=== PATIENT | female | born 1950 | race African-American/Black ===

== ENCOUNTER 2016-11-23 01:36 | Inpatient (IN) | payer OTHER ==
[2016-11-23 01:54] VITALS: BMI 40.6
[2016-11-23] MEDS ORDERED: dilTIAZem HCL 60 MG TABLET (FP) PO ONE (02:31)
[2016-11-23] MEDS ORDERED: dilTIAZem HCL 60 MG TABLET (FP) ONE (02:33)
[2016-11-23 03:08] LABS: BASOPHIL 0.4 % (0-2.0); EOSINOPHIL 0.1 % (0-4.5); MCH 28.2 pg (25.7-33.7); MCHC 32.8 g/dl (32.0-36.0); MEAN CELL VOLUME 85.9 fl (80-96); MEAN PLT VOLUME 8.9 fl (7.5-11.1); NEUTROPHILS 93.8 % (42.8-82.8); PLATELET COUNT 205 K/MM3 (134-434); RDW 16.7 % (11.6-15.6); WHITE BLOOD COUNT 9.8 K/mm3 (4.0-10.0)
[2016-11-23] MEDS ORDERED: dilTIAZem HCL 50 MG/10 ML - 10 ML VIAL IVPUSH ONE (03:14)
--- NOTE | 2016-11-23 03:14 | PDOC ---
Attending Attestation - Resident Resident Name: Mayra Arthur <Kenny Silver I - Last Filed: 11/23/16 03:13> - HPI HPI: 11/23/16 03:23 The patient is a 66 year old female who comes from home for evaluation of shortness of breath. The patient is normally on Cardizem and did not take her medication for the last couple of days. On arrival, she presents with rapid atrial fibrillation at a rate of 130-140. Her initial O2 saturation with room air was in the high 80%, on 2 L of O2 is 97%. She denies chest pain or any other complaints. - Physicial Exam PE: 11/23/16 03:23 General: (+) Mild distress. Respiratory: (+) Tachypneic. No rales or rhonchi. Good airway entry bilaterally. Cardiovascular: (+) Tachycardic. (+) Irregularly irregular rhythm. 11/23/16 03:23 - Medical Decision Making 11/23/16 03:23 Patient had rapid AFIB managed with initial PO Cardizem (60 mg). Heart rate remained in the high 130's. Patient was then given 10 mg of IV Cardizem and started at a drip of 5 mg/kg/hour. <Luis Felipe Lawson - Last Filed: 11/23/16 04:21> Heart Score/ECG Review #1 11/23/16 04:20 Vent rate 142 bpm [place] interval * ms QRS duration 102 ms QT/QTc 316/486 ms P-R-T axes * -36 97 Atrial fibrillation with rapid ventricular response. Left axis deviation Minimal voltage criteria for LVH, may be normal variant Abnormal QRS-T angle, consider primary T wave abnormality. Abnormal ECG. <Luis Felipe Lawson - Last Filed: 11/23/16 04:21>
[2016-11-23] MEDS ORDERED: dilTIAZem HCL 125 MG/25 ML - 25 ML VIAL ONE (03:16)
[2016-11-23] MEDS ORDERED: FUROSEMIDE 40 MG/4 ML INJECTABLE VIAL IVPUSH ONE (03:22)
[2016-11-23 03:24] LABS: INR 1.32 (0.82-1.09); PROTHROMBIN TIME (PATIENT) 14.6 SEC (9.98-11.88)
[2016-11-23] MEDS: DILTIAZEM INJECTION 125 MG in DEXTROSE 5%-WATER - 100 ML IVPB SCH ×2 (03:37→21:40)
[2016-11-23] MEDS ORDERED: FUROSEMIDE 40 MG/4 ML INJECTABLE VIAL ONE (03:57)
[2016-11-23 04:17] LABS: ALBUMIN 3.9 g/dl (3.4-5.0); ANION GAP 16 (8-16); CALCIUM 9.7 mg/dL (8.5-10.1); CO2 13 mmol/L (21-32); CREATININE 3.1 mg/dL (0.55-1.02); GLUCOSE,RANDOM 254 mg/dL (74-106); SGOT/AST 53 U/L (15-37); SGPT/ALT 67 U/L (12-78)
[2016-11-23 04:18] LABS: ALK PHOS 145 U/L (45-117); BILIRUBIN,TOTAL 0.9 mg/dL (0.2-1.0); TOT PROT 7.8 g/dl (6.4-8.2)
--- NOTE | 2016-11-23 05:34 | PDOC ---
History of Present Illness - General Chief Complaint: Shortness of Breath Stated Complaint: DIFFICULTY BREATHING Time Seen by Provider: 11/23/16 01:40 History Source: Patient Exam Limitations: No Limitations - History of Present Illness Initial Comments: 66yo F with PMH of afib (on Eliquis), dm, ckd, presents c/o sob. Pt reports that she had trouble breathing all day long. At 10pm she went to sleep but was woken up because of trouble breathing prompting her to come to the ER. She presents in rapid afib with O2 sats in the high 80%'s. Pt normally takes Cardizem, but she did not take her Cardizem yesterday. PCP: Dr. Rankin 11/23/16 05:29 Associated Symptoms: reports: shortness of breath. denies: chest pain, cough, diaphoresis, nausea/vomiting, syncope, weakness Past History - Past Medical History Allergies/Adverse Reactions: Allergies Allergy/AdvReac Type Severity Reaction Status Date / Time No Known Drug Allergies Allergy Verified 11/23/16 01:47 Home Medications: Ambulatory Orders Simvastatin [Zocor -] 40 mg PO DAILY 04/08/12 Aspirin [ASA -] 81 mg PO DAILY #1 02/23/13 Ascorbate Calcium [Vitamin C] 500 mg PO DAILY 03/07/14 Calcium 500 mg PO DAILY 03/07/14 Carvedilol [Coreg] 25 mg PO BID 03/07/14 Cyanocobalamin [Vitamin B12 -] 250 mcg PO DAILY 03/07/14 Ergocalciferol (Vitamin D2) [Vitamin D2] 50,000 unit PO WEEKLY 03/07/14 Glimepiride [Amaryl -] 1 mg PO DAILY@0700 03/07/14 Valacyclovir HCl [Valtrex -] 500 mg PO DAILY 03/07/14 Apixaban [Eliquis] 2.5 mg PO DAILY 07/06/15 Omeprazole [Prilosec] 40 mg PO DAILY 07/06/15 Cyclopentolate 1% Eye Drops [Cyclogyl 1% Eye Drops -] 1 drop OD TID 05/17/16 Cyclopentolate 1% Eye Drops [Cyclogyl 1% Eye Drops -] 1 drop OS ONCE 05/17/16 Diltiazem [Cardizem -] 30 mg PO BID #60 tablet 05/19/16 Furosemide [Lasix] 40 mg PO BID #60 tablet 05/19/16 Anemia: No Asthma: Yes Cancer: No Cardiac Disorders: Yes (CAD, Left side stent, porcine valve, afib) CVA: Yes (NO RESIDUAL) COPD: No CHF: No Dementia: No Diabetes: Yes GI Disorders: No Disorders: No HTN: Yes Hypercholesterolemia: Yes Liver Disease: No Seizures: No Thyroid Disease: No Other medical history: ckd, arthritis, blind - Surgical History Abdominal Surgery: No Appendectomy: No Cardiac Surgery: Yes (valve replacementx2 most rcent with pig valve) Cholecystectomy: No Lung Surgery: No Neurologic Surgery: No Orthopedic Surgery: No - Psycho/Social/Smoking Cessation Hx Anxiety: No Suicidal Ideation: No Smoking Status: No Smoking History: Former smoker Have you smoked in the past 12 months: No Number of Cigarettes Smoked Daily: 0 If you are a former smoker, when did you quit?: 12 yrs ago Information on smoking cessation initiated: No 'Breaking Loose' booklet given: 04/09/12 Hx Alcohol Use: No Drug/Substance Use Hx: No Substance Use Type: None Hx Substance Use Treatment: No Review of Systems - Review of Systems Able to Perform ROS?: Yes Is the patient limited [place] proficient: No Constitutional: No: Chills, Diaphoresis, Fever HEENTM: No: Recent change in vision, Ear Pain, Nose Congestion, Throat Swelling Respiratory: Yes: Orthopnea, Shortness of Breath. No: Cough, Stridor, Wheezing Cardiac (ROS): Yes: Irregular Heart Rate. No: Chest Pain, Edema, Lightheadedness, Syncope, Chest Tightness ABD/GI: No: Abdominal Distended, Nausea, Vomiting, Abdominal cramping : No: Burning, Dysuria Musculoskeletal: Yes: Joint Pain (knees - gout and arthritis) Integumentary: No: Bruising, Erythema, Rash Neurological: Yes: Numbness. No: Weakness ( ), Dizziness *Physical Exam - Vital Signs Last Vital Signs Temp Pulse Resp BP Pulse Ox 98.4 F 77 22 157/100 100 11/23/16 01:47 11/23/16 01:47 11/23/16 01:47 11/23/16 01:47 11/23/16 01:47 - Physical Exam General Appearance: Yes: Appropriately Dressed, Moderate Distress, Obese, Other (blind) HEENT: positive: Normal Voice, Other (moist mucous membranes). negative: Pale Conjunctivae, Scleral Icterus (R), Scleral Icterus (L), Nasal Congestion, Rhinorrhea Neck: positive: Trachea midline, Supple Respiratory/Chest: positive: Lungs Clear, Normal Breath Sounds. negative: Respiratory Distress, Accessory Muscle Use Cardiovascular: positive: Irregularly Irregular. negative: Murmur Gastrointestinal/Abdominal: positive: Soft. negative: Distended, Guarding, Rebound, Tenderness Musculoskeletal: negative: Decreased Range of Motion Extremity: positive: Normal Inspection. negative: Swelling, Calf Tenderness, Erythema Integumentary: positive: Normal Color, Dry, Warm Neurologic: positive: Fully Oriented, Alert, Normal Mood/Affect, Normal Response , Motor Strength 07/11 ED Treatment Course - LABORATORY CBC & Chemistry Diagram: 11/23/16 03:00 11/23/16 03:26 - ADDITIONAL ORDERS Additional order review: Laboratory Results 11/23/16 11/23/16 11/23/16 03:26 03:00 03:00 PT with INR INR Sodium 138 Potassium 5.8 H D Chloride 109 H Carbon Dioxide 13 L D Anion Gap 16 BUN 79 H Creatinine 3.1 H Creat Clearance w eGFR 14.99 Random Glucose 254 H D Lactic Acid 1.1 Calcium 9.7 Magnesium Cancelled Total Bilirubin 0.9 D AST 53 H D ALT 67 D Alkaline Phosphatase 145 H D Creatine Kinase Cancelled Troponin I Cancelled Total Protein 7.8 D Albumin 3.9 D 11/23/16 11/23/16 03:00 03:00 PT with INR 14.60 H INR 1.32 H Sodium Cancelled Potassium Cancelled Chloride Cancelled Carbon Dioxide Cancelled Anion Gap Cancelled BUN Cancelled Creatinine Cancelled Creat Clearance w eGFR Cancelled Random Glucose Cancelled Lactic Acid Calcium Cancelled Magnesium Total Bilirubin Cancelled AST Cancelled ALT Cancelled Alkaline Phosphatase Cancelled Creatine Kinase Troponin I Total Protein Cancelled Albumin Cancelled 11/23/16 03:00 RBC 4.23 MCV 85.9 MCHC 32.8 RDW 16.7 H MPV 8.9 Neutrophils % 93.8 H Lymphocytes % 3.7 L D Monocytes % 2.0 L Eosinophils % 0.1 D Basophils % 0.4 - RADIOLOGY Radiology Studies Ordered: Category Date Time Status CXRPORT [CHEST X-RAY PORTABLE*] [RAD] Stat Radiology 11/23/16 02:35 Taken - Medications Given in the ED: ED Medications Discontinued Medications Generic Name Dose Route Start Last Admin Trade Name Meagan PRN Reason Stop Dose Admin Diltiazem HCl 60 mg 11/23/16 02:31 11/23/16 02:46 Cardizem - PO 11/23/16 02:32 60 mg ONCE ONE Administration Diltiazem HCl 10 mg 11/23/16 03:14 11/23/16 03:21 Cardizem Injection - IVPUSH 11/23/16 03:15 10 mg ONCE ONE Administration Furosemide 80 mg 11/23/16 03:22 11/23/16 04:05 Lasix Injection - IVPUSH 11/23/16 03:23 80 mg ONCE ONE Administration Medical Decision Making - Medical Decision Making 66yo F with PMH of afib (on Eliquis), dm, ckd, presents c/o sob. Pt did not take her Cardizem yesterday and presents in rapid afib. EKG -> afib with rapid ventricular response Cardizem 60mg PO given (twice pt's normal dose). HR remained 130-140 -> Cardizem 10mg IVpush given and Cardizem drip initiated O2 sats in high 80%'s on arrival -> 97% on 2 L O2 via nasal cannula CXR -> official read pending, looks congested -> Lasix 80mg IVpush CBC with diff -> neutrophilia noted. troponin lab hemolyzed -> reordered CMP -> hyperglycemia (254), elevated BUN/Cr (79/3.1 at baseline ckd), hyperkalemia (5.8) -> Calcium gluconate and Regular Insulin 5U IVpush given INR -> 1.32 (on eliquis) lactic acid -> wnl 11/23/16 05:50 11/23/16 07:20 Case signed out to ER Resident Dr. Chapa. Pt should be admitted to ICU. *DC/Admit/Observation/Transfer Diagnosis at time of Disposition: CKD (chronic kidney disease) stage 4, GFR 15-29 ml/min, Hyperkalemia, Non- insulin dependent type 2 diabetes mellitus, Afib - Discharge Dispostion Condition at time of disposition: Guarded
[2016-11-23] MEDS ORDERED: INSULIN REGULAR HUMAN 100 UNITS/ML *VIAL IVPUSH ONE (05:42)
[2016-11-23] MEDS ORDERED: CALCIUM GLUCONATE 10% - 1,000 MG/10 ML VIAL IVPUSH ONE (05:42)
[2016-11-23] MEDS ORDERED: CALCIUM GLUCONATE 10% - 1,000 MG/10 ML VIAL ONE (06:34)
[2016-11-23 08:18] LABS: URINE APPEARANCE SLCLOUDY; URINE BILIRUBIN NEGATIVE (NEGATIVE); URINE BLOOD 1+ (NEGATIVE); URINE COLOR STRAW; URINE GLUCOSE (UA) 1+ (NEGATIVE); URINE KETONE NEGATIVE (NEGATIVE); URINE LEUK ESTERASE NEGATIVE (NEGATIVE); URINE NITRITE NEGATIVE (NEGATIVE); URINE PROTEIN 2+ (NEGATIVE); URINE UROBILINOGEN NEGATIVE mg/dL (0.2-1.0)
[2016-11-23 08:21] LABS: CALCIUM OXALATE CRYSTALS RARE /hpf (NONE SEEN); URINE MUCUS RARE; URINE RBC 6 /hpf (0-3); URINE WBC 1 /hpf (3-5); YEAST RARE
[2016-11-23 08:22] LABS: MAGNESIUM 1.4 mg/dL (1.8-2.4)
[2016-11-23 08:23] LABS: CPK 182 IU/L (26-192); TROPONIN I 0.33 ng/ml (0.00-0.05)
--- NOTE | 2016-11-23 08:47 | PDOC ---
*Physical Exam - Vital Signs Last Vital Signs Temp Pulse Resp BP Pulse Ox 98.4 F 125 H 24 159/92 100 11/23/16 01:47 11/23/16 07:45 11/23/16 07:45 11/23/16 07:45 11/23/16 07:45 - Physical Exam Comments: 11/23/16 08:45 GENERAL: Awake, alert, and fully oriented, in no acute distress ENT: Auricles normal inspection, hearing grossly normal, nares patent, oropharynx clear without exudates. Moist mucosa LUNGS: No distress, speaks full sentences, clear to auscultation bilaterally HEART: Regular rhythm, tachycardic, normal S1 and S2, no murmurs, rubs or gallops, peripheral pulses normal and equal bilaterally. ABDOMEN: Soft, nontender, normoactive bowel sounds. No guarding, no rebound. No masses EXTREMITIES: Normal inspection, Normal range of motion, mild pitting edema to knee. No clubbing or cyanosis. NEUROLOGICAL: Cranial nerves II through XII grossly intact. Normal speech, no focal sensorimotor deficits SKIN: Warm, Dry, normal turgor, no rashes or lesions noted. ED Treatment Course - LABORATORY CBC & Chemistry Diagram: 11/23/16 03:00 11/23/16 07:35 - ADDITIONAL ORDERS Additional order review: Laboratory Results 11/23/16 11/23/16 11/23/16 07:35 06:10 03:26 PT with INR INR Sodium 138 Potassium 5.8 H D Chloride 109 H Carbon Dioxide 13 L D Anion Gap 16 BUN 79 H Creatinine 3.1 H Creat Clearance w eGFR 14.99 Random Glucose 254 H D Lactic Acid Calcium 9.7 Magnesium 1.4 L D Total Bilirubin 0.9 D AST 53 H D ALT 67 D Alkaline Phosphatase 145 H D Creatine Kinase 182 Troponin I 0.33 H Total Protein 7.8 D Albumin 3.9 D Urine Color Straw Urine Appearance Slcloudy Urine pH 5.0 Urine Protein 2+ H Urine Glucose (UA) 1+ H Urine Ketones Negative Urine Blood 1+ H Urine Nitrite Negative Urine Bilirubin Negative Urine Urobilinogen Negative Urine RBC 6 Urine WBC 1 Ur Epithelial Cells Few Calcium Oxalate Crystal Rare Urine Mucus Rare Urine Yeast Rare 11/23/16 11/23/16 11/23/16 03:00 03:00 03:00 PT with INR 14.60 H INR 1.32 H Sodium Potassium Chloride Carbon Dioxide Anion Gap BUN Creatinine Creat Clearance w eGFR Random Glucose Lactic Acid 1.1 Calcium Magnesium Cancelled Total Bilirubin AST ALT Alkaline Phosphatase Creatine Kinase Cancelled Troponin I Cancelled Total Protein Albumin Urine Color Urine Appearance Urine pH Urine Protein Urine Glucose (UA) Urine Ketones Urine Blood Urine Nitrite Urine Bilirubin Urine Urobilinogen Urine RBC Urine WBC Ur Epithelial Cells Calcium Oxalate Crystal Urine Mucus Urine Yeast 11/23/16 03:00 PT with INR INR Sodium Cancelled Potassium Cancelled Chloride Cancelled Carbon Dioxide Cancelled Anion Gap Cancelled BUN Cancelled Creatinine Cancelled Creat Clearance w eGFR Cancelled Random Glucose Cancelled Lactic Acid Calcium Cancelled Magnesium Total Bilirubin Cancelled AST Cancelled ALT Cancelled Alkaline Phosphatase Cancelled Creatine Kinase Troponin I Total Protein Cancelled Albumin Cancelled Urine Color Urine Appearance Urine pH Urine Protein Urine Glucose (UA) Urine Ketones Urine Blood Urine Nitrite Urine Bilirubin Urine Urobilinogen Urine RBC Urine WBC Ur Epithelial Cells Calcium Oxalate Crystal Urine Mucus Urine Yeast 11/23/16 03:00 RBC 4.23 MCV 85.9 MCHC 32.8 RDW 16.7 H MPV 8.9 Neutrophils % 93.8 H Lymphocytes % 3.7 L D Monocytes % 2.0 L Eosinophils % 0.1 D Basophils % 0.4 - Medications Given in the ED: ED Medications Discontinued Medications Generic Name Dose Route Start Last Admin Trade Name Meagan PRN Reason Stop Dose Admin Calcium Gluconate 1,000 mg 11/23/16 05:42 11/23/16 06:49 Calcium Gluconate 10% - IVPUSH 11/23/16 05:43 1,000 mg ONCE ONE Administration Diltiazem HCl 60 mg 11/23/16 02:31 11/23/16 02:46 Cardizem - PO 11/23/16 02:32 60 mg ONCE ONE Administration Diltiazem HCl 10 mg 11/23/16 03:14 11/23/16 03:21 Cardizem Injection - IVPUSH 11/23/16 03:15 10 mg ONCE ONE Administration Furosemide 80 mg 11/23/16 03:22 11/23/16 04:05 Lasix Injection - IVPUSH 11/23/16 03:23 80 mg ONCE ONE Administration Insulin Human Regular 5 units 11/23/16 05:42 11/23/16 06:49 Novolin R Vial *For Ivpush Or Iv Drip Only* IVPUSH 11/23/16 05:43 5 units ONCE ONE Administration Medical Decision Making - Medical Decision Making 11/23/16 08:47 Sign out taken from Dr Arthur, will follow trop, monitor and admit to icu. Trop at 0.33, at baseline. Cr at 3.1, at baseline. SBP at 160, rate controlled to 100s on diltiazem drip. Repeat BMP ordered for hyperkalemia. 11/23/16 09:24 Second call out to PCP. 11/23/16 09:25 Laboratory Tests 11/23/16 07:35 Potassium 4.8 B-Natriuretic Peptide 56722.78 H Potassium in normal range, BNP 18k 11/23/16 09:[address] Amanda, has no cardiology preference. Will consult cards. Accepted to ICU by Dr Ordonez. *DC/Admit/Observation/Transfer Diagnosis at time of Disposition: CKD (chronic kidney disease) stage 4, GFR 15-29 ml/min, Hyperkalemia, Non- insulin dependent type 2 diabetes mellitus, Afib - Discharge Dispostion Condition at time of disposition: Guarded
[2016-11-23 08:49] LABS: ALBUMIN 3.9 g/dl (3.4-5.0); ANION GAP 11 (8-16); BILIRUBIN,TOTAL 0.7 mg/dL (0.2-1.0); CALCIUM 10.3 mg/dL (8.5-10.1); CO2 18 mmol/L (21-32); CREATININE 3.1 mg/dL (0.55-1.02); GLUCOSE,RANDOM 171 mg/dL (74-106); SGPT/ALT 72 U/L (12-78); TOT PROT 8.2 g/dl (6.4-8.2)
[2016-11-23 08:51] LABS: ALK PHOS 145 U/L (45-117)
[2016-11-23 08:55] LABS: SGOT/AST 49 U/L (15-37)
--- NOTE | 2016-11-23 09:50 | CON.CARD ---
Consult Consult Specialty:: Cardiology Reason for Consultation:: af with rvr - History of Present Illness History of Present Illness: 66yo F with PMH of afib (on Eliquis), dm, ckd, presents c/o sob. Pt reports that she had trouble breathing all day long. At 10pm she went to sleep but was woken up because of trouble breathing prompting her to come to the ER. She presents in rapid afib with O2 sats in the high 80%'s. Pt normally takes Cardizem, but she did not take her Cardizem yesterday. Surgery; metallic MVR 2002, bovine MVR 2006, HD fistula, gall bladder PMH DM, HTN, lipids, GERD, asthma - History Source History Provided By: Patient, Medical Record - Past Medical History Cardio/Vascular: Yes: AFIB (paroxysmal), CAD (s/p stent), HTN, Mitral Insufficiency Pulmonary: Yes: Asthma Gastrointestinal: Yes: GERD Hepatobiliary: Yes: Cholelithiasis Renal/: Yes: Renal Inusuff (CKD 4) Endocrine: Yes: Diabetes Mellitus (with diabetic retinopathy-blind) - Past Surgical History Past Surgical History: Yes: AV Fistula/Graft (left-non functioning), Hysterectomy (LETI/BSO 1969), Valve Replacement (porcine 2006) - Alcohol/Substance Use Hx Alcohol Use: No - Smoking History Smoking history: Former smoker Have you smoked in the past 12 months: No Aproximately how many cigarettes per day: 0 If you are a former smoker, when did you quit?: 12 yrs ago - Social History 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[facility]) History of Recent Travel: No Home Medications - Allergies Allergies/Adverse Reactions: Allergies Allergy/AdvReac Type Severity Reaction Status Date / Time No Known Drug Allergies Allergy Verified 11/23/16 01:47 - Home Medications Home Medications: Ambulatory Orders Aspirin [ASA -] 81 mg PO DAILY #1 02/23/13 Ascorbate Calcium [Vitamin C] 500 mg PO DAILY 03/07/14 Calcium 500 mg PO DAILY 03/07/14 Carvedilol [Coreg] 25 mg PO BID 03/07/14 Cyanocobalamin [Vitamin B12 -] 250 mcg PO DAILY 03/07/14 Ergocalciferol (Vitamin D2) [Vitamin D2] 50,000 unit PO WEEKLY 03/07/14 Glimepiride [Amaryl -] 1 mg PO DAILY@0700 03/07/14 Apixaban [Eliquis] 2.5 mg PO DAILY 07/06/15 Omeprazole [Prilosec] 40 mg PO DAILY 07/06/15 Cyclopentolate 1% Eye Drops [Cyclogyl 1% Eye Drops -] 1 drop OD TID 05/17/16 Ferrous Sulfate 325 mg PO DAILY 11/23/16 Hydrochlorothiazide 25 mg PO DAILY 11/23/16 Family Disease History - Family Disease History Family Disease History: Diabetes: Father, Heart Disease: Father, Other: Mother ( Alzheimers) Review of Systems - Review of Systems Constitutional: reports: No Symptoms Eyes: reports: No Symptoms HENT: reports: No Symptoms Neck: reports: No Symptoms Cardiovascular: reports: Palpitations, Shortness of Breath Gastrointestinal: reports: No Symptoms Genitourinary: reports: No Symptoms Breasts: reports: No Symptoms Reported Musculoskeletal: reports: No Symptoms Integumentary: reports: No Symptoms Neurological: reports: No Symptoms Endocrine: reports: No Symptoms Hematology/Lymphatic: reports: No Symptoms Psychiatric: reports: No Symptoms Vital Signs: Vital Signs Temperature 98.4 F 11/23/16 01:47 Pulse Rate 125 H 11/23/16 07:45 Respiratory Rate 24 11/23/16 07:45 Blood Pressure 159/92 11/23/16 07:45 O2 Sat by Pulse Oximetry (%) 100 11/23/16 07:45 Constitutional: Yes: Well Nourished, No Distress, Calm Eyes: Yes: WNL, Conjunctiva Clear, EOM Intact HENT: Yes: WNL, Atraumatic, Normocephalic Neck: Yes: WNL, Supple, Trachea Midline Respiratory: Yes: WNL, Regular, CTA Bilaterally Gastrointestinal: Yes: WNL, Normal Bowel Sounds Renal/: Yes: WNL Cardiovascular: Yes: WNL, Pulse Irregular Heart Sounds: Yes: S1, S2 Murmur: Yes: Systolic Murmur, Grade 2 Musculoskeletal: Yes: WNL Extremities: Yes: WNL Integumentary: Yes: WNL Neurological: Yes: WNL, Alert, Oriented ...Motor Strength: WNL Psychiatric: Yes: WNL, Alert, Oriented - Other Data Labs, Other Data: INR, PTT INR 1.32 (0.82-1.09) H 11/23/16 03:00 Laboratory Tests 11/23/16 11/23/16 11/23/16 03:00 03:00 03:00 WBC 9.8 RBC 4.23 Hgb 11.9 Hct 36.4 MCV 85.9 MCH 28.2 MCHC 32.8 RDW 16.7 H Plt Count 205 MPV 8.9 Neutrophils % 93.8 H Lymphocytes % 3.7 L D Monocytes % 2.0 L Eosinophils % 0.1 D Basophils % 0.4 PT with INR 14.60 H INR 1.32 H Sodium Cancelled Potassium Cancelled Chloride Cancelled Carbon Dioxide Cancelled Anion Gap Cancelled BUN Cancelled Creatinine Cancelled Creat Clearance w eGFR Cancelled Random Glucose Cancelled Lactic Acid Calcium Cancelled Magnesium Total Bilirubin Cancelled AST Cancelled ALT Cancelled Alkaline Phosphatase Cancelled Creatine Kinase Creatine Kinase Index CK-MB (CK-2) Troponin I B-Natriuretic Peptide Total Protein Cancelled Albumin Cancelled Urine Color Urine Appearance Urine pH Urine Protein Urine Glucose (UA) Urine Ketones Urine Blood Urine Nitrite Urine Bilirubin Urine Urobilinogen Urine RBC Urine WBC Ur Epithelial Cells Calcium Oxalate Crystal Urine Mucus Urine Yeast 11/23/16 11/23/16 11/23/16 03:00 03:00 03:26 WBC RBC Hgb Hct MCV MCH MCHC RDW Plt Count MPV Neutrophils % Lymphocytes % Monocytes % Eosinophils % Basophils % PT with INR INR Sodium 138 Potassium 5.8 H D Chloride 109 H Carbon Dioxide 13 L D Anion Gap 16 BUN 79 H Creatinine 3.1 H Creat Clearance w eGFR 14.99 Random Glucose 254 H D Lactic Acid 1.1 Calcium 9.7 Magnesium Cancelled Total Bilirubin 0.9 D AST 53 H D ALT 67 D Alkaline Phosphatase 145 H D Creatine Kinase Cancelled Creatine Kinase Index CK-MB (CK-2) Troponin I Cancelled B-Natriuretic Peptide Total Protein 7.8 D Albumin 3.9 D Urine Color Urine Appearance Urine pH Urine Protein Urine Glucose (UA) Urine Ketones Urine Blood Urine Nitrite Urine Bilirubin Urine Urobilinogen Urine RBC Urine WBC Ur Epithelial Cells Calcium Oxalate Crystal Urine Mucus Urine Yeast 11/23/16 11/23/16 06:10 07:35 WBC RBC Hgb Hct MCV MCH MCHC RDW Plt Count MPV Neutrophils % Lymphocytes % Monocytes % Eosinophils % Basophils % PT with INR INR Sodium 138 Potassium 4.8 Chloride 109 H Carbon Dioxide 18 L D Anion Gap 11 BUN 74 H Creatinine 3.1 H Creat Clearance w eGFR 14.99 Random Glucose 171 H D Lactic Acid Calcium 10.3 H Magnesium 1.4 L D Total Bilirubin 0.7 D AST 49 H ALT 72 Alkaline Phosphatase 145 H Creatine Kinase 182 Creatine Kinase Index 1.4 CK-MB (CK-2) 2.560 Troponin I 0.33 H B-Natriuretic Peptide 81446.78 H Total Protein 8.2 Albumin 3.9 Urine Color Straw Urine Appearance Slcloudy Urine pH 5.0 Urine Protein 2+ H Urine Glucose (UA) 1+ H Urine Ketones Negative Urine Blood 1+ H Urine Nitrite Negative Urine Bilirubin Negative Urine Urobilinogen Negative Urine RBC 6 Urine WBC 1 Ur Epithelial Cells Few Calcium Oxalate Crystal Rare Urine Mucus Rare Urine Yeast Rare Imaging - Results Chest X-ray: Image Reviewed (s/p [facility] CHF) EKG: Pending Problem List - Problems (1) Afib Code(s): I48.91 - UNSPECIFIED ATRIAL FIBRILLATION (2) CKD (chronic kidney disease) stage 4, GFR 15-29 ml/min Code(s): N18.4 - CHRONIC KIDNEY DISEASE, STAGE 4 (SEVERE) (3) Hyperkalemia Code(s): E87.5 - HYPERKALEMIA (4) Non-insulin dependent type 2 diabetes mellitus Code(s): E11.9 - TYPE 2 DIABETES MELLITUS WITHOUT COMPLICATIONS (5) Acute CHF (congestive heart failure) Code(s): I50.9 - HEART FAILURE, UNSPECIFIED Qualifiers: Congestive heart failure type: unspecified congestive heart failure type Qualified Code(s): I50.9 - Heart failure, unspecified (6) CAD (coronary artery disease) Code(s): I25.10 - ATHSCL HEART DISEASE OF [place] CORONARY ARTERY W/O ANG PCTRS Qualifiers: Coronary Disease-Associated Artery/Lesion type: [place] artery Associated angina: without angina (7) CKD (chronic kidney disease) Code(s): N18.9 - CHRONIC KIDNEY DISEASE, UNSPECIFIED Qualifiers: Chronic kidney disease stage: stage 4 (severe) Qualified Code(s): N18.4 - Chronic kidney disease, stage 4 (severe) (8) Shortness of breath Code(s): R06.02 - SHORTNESS OF BREATH Assessment/Plan af with RVR after stopping cardizem htn chf dm asthma s/p MVR - reop bovine ischemic cmp systolic chf plan Cardizem ip for now change to po as tolerated cont coreg cont ac agree with lasix echo will f/u
[2016-11-23] MEDS ORDERED: dilTIAZem HCL 125 MG/25 ML - 5 ML VIAL ONE ×2 (13:33→21:25)
--- NOTE | 2016-11-23 13:57 | CON.PULM ---
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 Apparently has an appointment for a sleep study in the city this week that was ordered by one of her doctors. Apparently has not been taking her Cardizem. Presents to the ER with SOB and palpitations. Noted ot be in Rapid AFib. CXR : consistent with CHF pattern. No fever or chills. No hemoptysis. No travel history or sick contacts. - History Source History Provided By: Patient Limitations to Obtaining History: No Limitations - Past Medical History Cardio/Vascular: Yes: AFIB (paroxysmal), CAD (s/p stent), HTN, Mitral Insufficiency Pulmonary: Yes: Asthma Gastrointestinal: Yes: GERD Hepatobiliary: Yes: Cholelithiasis Renal/: Yes: Renal Inusuff (CKD 4) ...: No Endocrine: Yes: Diabetes Mellitus (with diabetic retinopathy-blind) - Past Surgical History Past Surgical History: Yes: AV Fistula/Graft (left-non functioning), Hysterectomy (LETI/BSO 1969), Valve Replacement (porcine 2006) - Alcohol/Substance Use Hx Alcohol Use: No - Smoking History Smoking history: Former smoker Have you smoked in the past 12 months: No Aproximately how many cigarettes per day: 0 If you are a former smoker, when did you quit?: 12 yrs ago - 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 History 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[employer]) History of Recent Travel: No Home Medications - Allergies Allergies/Adverse Reactions: Allergies Allergy/AdvReac Type Severity Reaction Status Date / Time No Known Drug Allergies Allergy Verified 11/23/16 01:47 - Home Medications Home Medications: Ambulatory Orders Aspirin [ASA -] 81 mg PO DAILY #1 02/23/13 Ascorbate Calcium [Vitamin C] 500 mg PO DAILY 03/07/14 Calcium 500 mg PO DAILY 03/07/14 Carvedilol [Coreg] 25 mg PO BID 03/07/14 Cyanocobalamin [Vitamin B12 -] 250 mcg PO DAILY 03/07/14 Ergocalciferol (Vitamin D2) [Vitamin D2] 50,000 unit PO WEEKLY 03/07/14 Glimepiride [Amaryl -] 1 mg PO DAILY@0700 03/07/14 Apixaban [Eliquis] 2.5 mg PO DAILY 07/06/15 Omeprazole [Prilosec] 40 mg PO DAILY 07/06/15 Cyclopentolate 1% Eye Drops [Cyclogyl 1% Eye Drops -] 1 drop OD TID 05/17/16 Ferrous Sulfate 325 mg PO DAILY 11/23/16 Hydrochlorothiazide 25 mg PO DAILY 11/23/16 Family Disease History - Family Disease History Family Disease History: Diabetes: Father, Heart Disease: Father, Other: Mother ( Alzheimers) Review of Systems - Review of Systems Constitutional: denies: Chills, Malaise, Night Sweats, Unintentional Wgt. Loss Eyes: reports: No Symptoms HENT: reports: No Symptoms Neck: reports: No Symptoms Cardiovascular: reports: Edema, Palpitations, Shortness of Breath. denies: Chest Pain Respiratory: reports: Cough, Orthopnea, Snoring, SOB, SOB on Exertion. denies: Hemoptysis, Wheezing Gastrointestinal: reports: No Symptoms Genitourinary: reports: No Symptoms Breasts: reports: No Symptoms Reported Musculoskeletal: reports: No Symptoms Integumentary: reports: No Symptoms Neurological: reports: No Symptoms Endocrine: reports: No Symptoms Hematology/Lymphatic: reports: No Symptoms Psychiatric: reports: No Symptoms Physical Exam Vital Sings: Vital Signs Temperature 98.2 F 11/23/16 09:29 Pulse Rate 107 H 11/23/16 13:00 Respiratory Rate 25 H 11/23/16 13:00 Blood Pressure 143/57 11/23/16 13:00 O2 Sat by Pulse Oximetry (%) 100 11/23/16 10:30 Constitutional: Yes: No Distress Eyes: Yes: Conjunctiva Clear, EOM Intact HENT: Yes: Atraumatic, Normocephalic Neck: Yes: Supple, Trachea Midline Cardiovascular: Yes: Tachycardia, Pulse Irregular Respiratory: Yes: Cough, On Nasal O2, Rales, Rhonchi, SOB, Tachypnea. No: Accessory Muscle Use, Stridor, Wheezes ...Inspection: Yes: WNL Gastrointestinal: Yes: WNL, Normal Bowel Sounds, Soft Musculoskeletal: Yes: WNL Extremities: Yes: WNL Edema: No Peripheral Pulses WNL: Yes Integumentary: Yes: WNL Neurological: Yes: Alert, Oriented ...Motor Strength: WNL Psychiatric: Yes: WNL, Alert, Oriented Imaging - Results Chest X-ray: Report Reviewed, Image Reviewed Problem List - Problems (1) Afib Code(s): I48.91 - UNSPECIFIED ATRIAL FIBRILLATION (2) CKD (chronic kidney disease) stage 4, GFR 15-29 ml/min Code(s): N18.4 - CHRONIC KIDNEY DISEASE, STAGE 4 (SEVERE) (3) Non-insulin dependent type 2 diabetes mellitus Code(s): E11.9 - TYPE 2 DIABETES MELLITUS WITHOUT COMPLICATIONS (4) Acute CHF (congestive heart failure) Code(s): I50.9 - HEART FAILURE, UNSPECIFIED Qualifiers: Congestive heart failure type: unspecified congestive heart failure type Qualified Code(s): I50.9 - Heart failure, unspecified (5) CAD (coronary artery disease) Code(s): I25.10 - ATHSCL HEART DISEASE OF [place] CORONARY ARTERY W/O ANG PCTRS Qualifiers: Coronary Disease-Associated Artery/Lesion type: [place] artery Associated angina: without angina (6) CKD (chronic kidney disease) Code(s): N18.9 - CHRONIC KIDNEY DISEASE, UNSPECIFIED Qualifiers: Chronic kidney disease stage: stage 4 (severe) Qualified Code(s): N18.4 - Chronic kidney disease, stage 4 (severe) (7) Shortness of breath Code(s): R06.02 - SHORTNESS OF BREATH Assessment/Plan Cardizem drip O2 as needed Lasix given in the ER Daily weights Monitor off ABX PO as tolerated Will have sleep apnea screen as an outpatient (set up for the ) Trend cardiac enzymes ICU monitoring Thank you. Dr Moy Critical care time spent in reviewing chart, evaluating patient and formulating plan - 35 minutes.
[2016-11-23] MEDS ORDERED: ACETAMINOPHEN 325 MG TABLET (FP) ONE (14:50)
[2016-11-23] MEDS ORDERED: ACETAMINOPHEN 325 MG TABLET (FP) PO ONE (15:00)
--- NOTE | 2016-11-23 15:35 | HP ---
DATE OF ADMISSION: 11/23/2016 CHIEF COMPLAINT: Dyspnea and palpitations on the day of admission. This 66-year-old female, with a past medical history of hypertension, diabetes mellitus, coronary artery disease, status post stent placement, history of diabetic retinopathy with blindness for 7 years, history of CKD, stage 4, history of paroxysmal atrial fibrillation, asthma, and obstructive sleep apnea, presented to the emergency room after 1 day of palpitations and dyspnea which worsened, bringing the patient to the emergency room. The patient's symptoms are moderate to severe in intensity and progressive. The patient reports worsening with activity and some relief with rest. No other associated complaints. No other aggravating or relieving factors. PAST MEDICAL HISTORY: As above. PAST SURGICAL HISTORY: AV fistula in 2014, mitral valve replacement in 2002, and repeat replacement with porcine valve in 2006, total abdominal hysterectomy and bilateral salpingo-oophorectomy in 1969. FAMILY AND SOCIAL HISTORY: Unremarkable. The patient quit smoking in 2002. No known drug allergies. Home medications reviewed. REVIEW OF SYSTEMS: Unremarkable except for presenting complaints. PHYSICAL EXAMINATION: General: This is an obese female in no acute distress. Vital Signs: Temperature on admission was 98.4 degrees Fahrenheit. Pulse after Cardizem infusion was 77, irregular. Respiratory rate 20 per minute, non-labored. Blood pressure initially 157/100. Oxygen saturation 80% on room air and 100% on supplemental oxygen. HEENT: Within normal limits. Neck: Supple, with positive JVD. Chest: Good air entry bilaterally with scattered crackles. Heart: Rate and rhythm irregularly irregular. S1 and S2 heard. Abdomen: Soft. Nontender, nondistended, with normal bowel sounds. Neurological: The patient was awake, alert, oriented x3, with no gross focal neurological deficits. LABORATORY EXAMINATION: WBC count 9.8, hemoglobin 11.9, hematocrit 36.4%, platelet count 205, sodium 138, potassium 5.8, BUN 79, creatinine 3.1. AST and ALT were not elevated, AST 53, ALT 67. The first troponin was 0.33. An EKG showed atrial fibrillation with rapid ventricular response, no acute ST-T wave changes. A chest x-ray upon admission with some congestive changes. No infiltrate was noted. IMPRESSION: Atrial fibrillation with rapid ventricular response, acute on chronic renal failure, history of hypertension, diabetes mellitus, gastroesophageal reflux disease, coronary artery disease, paroxysmal atrial fibrillation, diabetic retinopathy, and CKD stage 4, history of asthma and obstructive sleep apnea. PLAN: The patient has now good rate control and is on a Cardizem infusion. The patient is being admitted to ICU for Cardizem infusion and monitoring. Pulmonology and Cardiology will see the patient in consultation. Her usual medications will be continued. Blood pressure and blood glucose will be monitored and medications adjusted accordingly. Troponins will be repeated. The patient's usual medications have been continued. Further management will be according to the results of these interventions. CHARLIE MCCARTHY M.D. [id number]
[2016-11-23] MEDS: INSULIN SLIDING SCALE (NOVOLOG) 1 VIAL SQ SCH (17:40)
[2016-11-23] MEDS: CYCLOPENTOLATE HCL 1% OPHTH SOLN 2 ML BOTTLE OD SCH (21:38)
[2016-11-23] MEDS: CARVEDILOL 25 MG TABLET (FP) PO SCH (21:38)
[2016-11-23] MEDS: MUPIROCIN 2% TOPICAL OINTMENT FOR DECOLONIZATION NS SCH (21:40)
[2016-11-23] MEDS ORDERED: CHLORHEXIDINE GLUCONATE 4% CLEANSER FOR DECOLONIZATION TP SCH (22:00)
[2016-11-23] MEDS: ACETAMINOPHEN 325 MG TABLET (FP) PO PRN (22:33)
[2016-11-24] MEDS ORDERED: Insulin (LOG) Aspart 100 UNITS/ML VIAL SQ ONE (00:18)
[2016-11-24] MEDS: DILTIAZEM INJECTION 125 MG in DEXTROSE 5%-WATER - 100 ML IVPB SCH (03:00)
[2016-11-24 06:02] LABS: MCH 28.7 pg (25.7-33.7); MCHC 33.6 g/dl (32.0-36.0); MEAN CELL VOLUME 85.4 fl (80-96); RDW 16.1 % (11.6-15.6)
[2016-11-24] MEDS: CYCLOPENTOLATE HCL 1% OPHTH SOLN 2 ML BOTTLE OD SCH ×3 (06:18→21:41)
[2016-11-24] MEDS: INSULIN SLIDING SCALE (NOVOLOG) 1 VIAL SQ SCH ×3 (06:18→16:10)
[2016-11-24 06:31] LABS: ALBUMIN 3.5 g/dl (3.4-5.0); ANION GAP 12 (8-16); CALCIUM 9.2 mg/dL (8.5-10.1); CO2 20 mmol/L (21-32); GLUCOSE,RANDOM 178 mg/dL (74-106)
[2016-11-24 06:35] LABS: ALK PHOS 120 U/L (45-117); BILIRUBIN,TOTAL 0.9 mg/dL (0.2-1.0); CREATININE 2.9 mg/dL (0.55-1.02); SGOT/AST 48 U/L (15-37); SGPT/ALT 68 U/L (12-78); TOT PROT 6.9 g/dl (6.4-8.2)
[2016-11-24 06:38] LABS: PLATELET COUNT 203 K/MM3 (134-434); WHITE BLOOD COUNT 17.7 K/mm3 (4.0-10.0)
[2016-11-24 06:39] LABS: MEAN PLT VOLUME 8.8 fl (7.5-11.1); PLATELET COMMENT2 NO CLOTTING DETECTED; PLATELET ESTIMATE ADEQUATE (NORMAL); TOTAL CELLS COUNTED 100
[2016-11-24] MEDS ORDERED: GLIMEPIRIDE 1 MG TABLET (FP) PO SCH (07:00)
--- NOTE | 2016-11-24 07:39 | PN ---
Physical Exam: SUBJECTIVE: Patient seen and examined OBJECTIVE: Vital Signs Period Temp Pulse Resp BP Sys/Dougherty Pulse Ox Last 24 Hr 98 F-98.2 F 55-136 17-29 90-181/57-102 100-100 GENERAL: The patient is awake, alert, and fully oriented, in no acute distress. HEAD: Normal with no signs of trauma. EYES: PERRL, extraocular movements intact, sclera anicteric, conjunctiva clear. No ptosis. ENT: Ears normal, nares patent, oropharynx clear without exudates, moist mucous membranes. NECK: Trachea midline, full range of motion, supple. LUNGS: Breath sounds equal, clear to auscultation bilaterally, no wheezes, no crackles, no accessory muscle use. HEART: Regular rate and rhythm, S1, S2 without murmur, rub or gallop. ABDOMEN: Soft, nontender, nondistended, normoactive bowel sounds, no guarding, no rebound, no hepatosplenomegaly, no masses. EXTREMITIES: 2+ pulses, warm, well-perfused, no edema. NEUROLOGICAL: Cranial nerves II through XII grossly intact. Normal speech, gait not observed. PSYCH: Normal mood, normal affect. SKIN: Warm, dry, normal turgor, no rashes or lesions noted Laboratory Results - last 24 hr 11/23/16 11/24/16 11/24/16 16:38 05:00 05:00 WBC 17.7 H D RBC 3.90 Hgb 11.2 Hct 33.3 MCV 85.4 MCH 28.7 MCHC 33.6 RDW 16.1 H Plt Count 203 MPV 8.8 Total Counted 100 Neutrophils % No Result Required. Neutrophils % (Manual) 86 H Lymphocytes % No Result Required. Lymphocytes % (Manual) 11 Monocytes % (Manual) 2 L Eosinophils % (Manual) 1 Platelet Estimate Adequate Platelet Comment No clotting detected Sodium 138 Potassium 4.5 Chloride 106 Carbon Dioxide 20 L Anion Gap 12 BUN 74 H Creatinine 2.9 H Creat Clearance w eGFR 16.19 POC Glucometer [phone] Random Glucose 178 H Calcium 9.2 Total Bilirubin 0.9 D AST 48 H ALT 68 Alkaline Phosphatase 120 H Total Protein 6.9 Albumin 3.5 11/24/16 06:00 WBC RBC Hgb Hct MCV MCH MCHC RDW Plt Count MPV Total Counted Neutrophils % Neutrophils % (Manual) Lymphocytes % Lymphocytes % (Manual) Monocytes % (Manual) Eosinophils % (Manual) Platelet Estimate Platelet Comment Sodium Potassium Chloride Carbon Dioxide Anion Gap BUN Creatinine Creat Clearance w eGFR POC Glucometer [phone] Random Glucose Calcium Total Bilirubin AST ALT Alkaline Phosphatase Total Protein Albumin Active Medications Generic Name Dose Route Start Last Admin Trade Name Freq PRN Reason Stop Dose Admin Acetaminophen 650 mg 11/23/16 14:16 11/23/16 22:33 Tylenol - PO 650 mg Q4H PRN Administration FEVER OR PAIN Apixaban 2.5 mg 11/24/16 10:00 Eliquis - PO DAILY [facility] Ascorbic Acid 500 mg 11/24/16 10:00 Vitamin C - PO DAILY [facility] Aspirin 81 mg 11/24/16 10:00 Asa - PO DAILY [facility] Calcium Carbonate 500 mg 11/24/16 10:00 Os-Jimi 500mg - PO DAILY HARSHA Carvedilol 25 mg 11/23/16 22:00 11/23/16 21:38 Coreg - PO 25 mg BID HARSHA Administration Chlorhexidine Gluconate 1 applic 11/23/16 22:00 11/23/16 21:40 Hibiclens For Decolonization - TP 1 applic HS HARSHA Administration Cyanocobalamin 250 mcg 11/24/16 10:00 Vitamin B12 - PO DAILY [facility] Cyclopentolate HCl 1 drop 11/23/16 22:00 11/24/16 06:18 Cyclogyl 1% Eye Drops - OD 1 drop TID HARSHA Administration Ergocalciferol 50,000 unit 11/24/16 10:00 Drisdol - PO Mo@1000 [facility] Ferrous Sulfate 325 mg 11/24/16 10:00 Feosol - PO DAILY [facility] Glimepiride 1 mg 11/24/16 07:00 11/24/16 06:19 Amaryl - PO 1 mg DAILY@0700 HARSHA Administration Hydrochlorothiazide 25 mg 11/24/16 10:00 Hctz - PO DAILY [facility] Diltiazem HCl 125 mg/ Dextrose 125 mls @ 5 mls/hr 11/23/16 03:15 11/24/16 03:00 IVPB Not Given TITR [facility] Protocol 5 MG/HR Insulin Aspart 1 vial 11/23/16 16:30 11/24/16 06:18 Novolog Vial Sliding Scale - SQ 2 units TIDAC HARSHA Administration Protocol Insulin Aspart 2 units 11/24/16 00:18 11/24/16 01:50 Novolog SQ 11/24/16 00:19 2 units ONCE ONE Administration Mupirocin 1 applic 11/23/16 22:00 11/23/16 21:40 Bactroban Ointment (For Decolonization) - NS 11/28/16 21:59 1 applic BID HARSHA Administration Pantoprazole Sodium 40 mg 11/24/16 10:00 Protonix - PO DAILY [facility] ASSESSMENT/PLAN: 66yo F with PMH of afib (on Eliquis), dm, ckd, presents c/o sob. Pt reports that she had trouble breathing all day long. At 10pm she went to sleep but was woken up because of trouble breathing prompting her to come to the ER. She presented in rapid afib with O2 sats in the high 80%'s. CARDIOVASCULAR - Rapid Afib, HTN - Taper and D/C Cardizem drip - Cardizem PO 60mg TID - Follow up Echo - O2 as needed - HCTZ RENAL - CKD - Lasix MSK - follow up about home gout meds, restart. PO as tolerated Will have sleep apnea screen as an outpatient (set up for the ) Cardiac Telemetry monitoring Visit type - Emergency Visit Emergency Visit: No - New Patient This patient is new to me today: Yes Date on this admission: 11/24/16 - Critical Care Critical Care patient: No Total Critical Care Time (in minutes): 30 Critical Care Statement: The care of this patient involved high complexity decision making to prevent further life threatening deterioration of the patient 's condition and/or to evaluate & treat vital organ system(s) failure or risk of failure.
--- NOTE | 2016-11-24 09:06 | PN ---
Progress Note (short form) - Note Progress Note: Admitted for dyspnea, symptomatic rapid Afib felt like she was coming down with a cold for past 4 days. in er tachycardic and hypertensive, was started on iv cardizem drip off of cardizem since 2 am due to bradicardis, received 60 mg po x1 CBC, BMP 11/24/16 05:00 11/24/16 05:00 Vital Signs Period Temp Pulse Resp BP Sys/[place] Pulse Ox Last 24 Hr 98 F-98.2 F 55-136 17-29 90-181/57-102 100-100 S1S2 irreg.irreg. lungs cta abd soft no edema aaox3 blind Imp rapid afib HTN CKD stage 4 NIDDM with diabetic retinopathy CAD Plan po cardizem can transfer to telemetry keep at bedrest for now check echo check TSH on eliquis for AC
[2016-11-24] MEDS ORDERED: PT OWN MED DRAWER 7, Y5N ONE (09:35)
[2016-11-24] MEDS: CARVEDILOL 25 MG TABLET (FP) PO SCH ×2 (09:54→21:40)
[2016-11-24] MEDS: dilTIAZem HCL 60 MG TABLET (FP) PO SCH ×3 (09:55→21:40)
[2016-11-24] MEDS ORDERED: FERROUS SO4 325 MG TABLET (FP) PO SCH (10:00)
[2016-11-24] MEDS ORDERED: HYDROCHLOROTHIAZIDE 25 MG TABLET (FP) PO SCH (10:00)
[2016-11-24] MEDS ORDERED: PANTOPRAZOLE 40 MG TABLET (FP) PO SCH (10:00)
[2016-11-24] MEDS ORDERED: CYANOCOBALAMIN (VITAMIN B-12) 100 MCG TABLET PO SCH (10:00)
[2016-11-24] MEDS ORDERED: ASCORBIC ACID 500 MG TABLET (FP) PO SCH (10:00)
[2016-11-24] MEDS ORDERED: ERGOCALCIFEROL (VITAMIN D2) 50,000 UNIT CAPSULE (FP) PO SCH (10:00)
[2016-11-24] MEDS ORDERED: APIXABAN 2.5 MG TABLET PO SCH (10:00)
[2016-11-24] MEDS ORDERED: ASPIRIN 81 MG CHEWABLE TABLETS PO SCH (10:00)
[2016-11-24] MEDS ORDERED: CALCIUM (OYSTER SHELL) 500 MG TABLET (FP) PO SCH (10:00)
[2016-11-24] MEDS: MUPIROCIN 2% TOPICAL OINTMENT FOR DECOLONIZATION NS SCH ×2 (11:11→21:39)
--- NOTE | 2016-11-24 12:52 | PN ---
Teaching Attending Note Name of Resident: Maik Saez ATTENDING PHYSICIAN STATEMENT I saw and evaluated the patient. I reviewed the resident's note and discussed the case with the resident. I agree with the resident's findings and plan as documented. SUBJECTIVE: Patient seen and examined in the ICU. Remains on IV Cardizem for rate control. Denies CP or SOB. She does have bilateral LE gout discomfort/pain. CXR: Improving CHF Intake & Output 11/21/16 11/22/16 11/23/16 11/24/16 23:59 23:59 23:59 23:59 Intake Total 875 128 Output Total 1999 500 Balance -1125 -372 Weight 244 lb 235 lb 12.8 oz Last Vital Signs Temp Pulse Resp BP Pulse Ox 98 F 93 H 21 167/80 100 11/24/16 10:02 11/24/16 10:02 11/24/16 10:02 11/24/16 10:02 11/24/16 09:00 Active Medications Acetaminophen (Tylenol -) 650 mg PO Q4H PRN PRN Reason: FEVER OR PAIN Last Admin: 11/23/16 22:33 Dose: 650 mg Apixaban (Eliquis -) 2.5 mg PO DAILY [facility] Ascorbic Acid (Vitamin C -) 500 mg PO DAILY [facility] Last Admin: 11/24/16 09:54 Dose: 500 mg Aspirin (Asa -) 81 mg PO DAILY [facility] Last Admin: 11/24/16 09:55 Dose: 81 mg Calcium Carbonate (Os-Jimi 500mg -) 500 mg PO DAILY [facility] Last Admin: 11/24/16 09:55 Dose: 500 mg Carvedilol (Coreg -) 25 mg PO BID [facility] Last Admin: 11/24/16 09:54 Dose: 25 mg Chlorhexidine Gluconate (Hibiclens For Decolonization -) 1 applic TP HS [facility] Last Admin: 11/23/16 21:40 Dose: 1 applic Cyanocobalamin (Vitamin B12 -) 250 mcg PO DAILY [facility] Last Admin: 11/24/16 09:58 Dose: 250 mcg Cyclopentolate HCl (Cyclogyl 1% Eye Drops -) 1 drop OD TID [facility] Last Admin: 11/24/16 06:18 Dose: 1 drop Diltiazem HCl (Cardizem -) 60 mg PO TID [facility] Last Admin: 11/24/16 09:55 Dose: 60 mg Ergocalciferol (Drisdol -) 50,000 unit PO Mo@1000 [facility] Last Admin: 11/24/16 09:55 Dose: 50,000 unit Ferrous Sulfate (Feosol -) 325 mg PO DAILY [facility] Last Admin: 11/24/16 10:03 Dose: 325 mg Glimepiride (Amaryl -) 1 mg PO DAILY@0700 [facility] Last Admin: 11/24/16 06:19 Dose: 1 mg Hydrochlorothiazide (Hctz -) 25 mg PO DAILY [facility] Last Admin: 11/24/16 10:03 Dose: 25 mg Insulin Aspart (Novolog Vial Sliding Scale -) 1 vial SQ TIDAC [facility] PRN Reason: Protocol Last Admin: 11/24/16 11:19 Dose: 2 units Mupirocin (Bactroban Ointment (For Decolonization) -) 1 applic NS BID [facility] Stop: 11/28/16 21:59 Last Admin: 11/24/16 11:11 Dose: 1 applic Pantoprazole Sodium (Protonix -) 40 mg PO DAILY [facility] Last Admin: 11/24/16 09:59 Dose: 40 mg Constitutional: Yes: No Distress Eyes: Yes: Conjunctiva Clear, EOM Intact HENT: Yes: Atraumatic, Normocephalic Neck: Yes: Supple, Trachea Midline Cardiovascular: Yes: Tachycardia, Pulse Irregular Respiratory: Yes: Cough, On Nasal O2, Rales, Rhonchi, SOB, Tachypnea. No: Accessory Muscle Use, Stridor, Wheezes ...Inspection: Yes: WNL Gastrointestinal: Yes: WNL, Normal Bowel Sounds, Soft Musculoskeletal: Yes: WNL Extremities: Yes: WNL Edema: No Peripheral Pulses WNL: Yes Integumentary: Yes: WNL Neurological: Yes: Alert, Oriented ...Motor Strength: WNL Psychiatric: Yes: WNL, Alert, Oriented Laboratory Results - last 24 hr 11/23/16 11/23/16 11/24/16 06:10 16:38 05:00 WBC 17.7 H D RBC 3.90 Hgb 11.2 Hct 33.3 MCV 85.4 MCH 28.7 MCHC 33.6 RDW 16.1 H Plt Count 203 MPV 8.8 Total Counted 100 Neutrophils % No Result Required. Neutrophils % (Manual) 86 H Lymphocytes % No Result Required. Lymphocytes % (Manual) 11 Monocytes % (Manual) 2 L Eosinophils % (Manual) 1 Platelet Estimate Adequate Platelet Comment No clotting detected Sodium Potassium Chloride Carbon Dioxide Anion Gap BUN Creatinine Creat Clearance w eGFR POC Glucometer [phone] Random Glucose Calcium Total Bilirubin AST ALT Alkaline Phosphatase Troponin I Total Protein Albumin Urine Color Straw Urine Appearance Slcloudy Urine pH 5.0 Ur Specific [place] 1.015 Urine Protein 2+ H Urine Glucose (UA) 1+ H Urine Ketones Negative Urine Blood 1+ H Urine Nitrite Negative Urine Bilirubin Negative Urine Urobilinogen Negative Urine RBC 6 Urine WBC 1 Ur Epithelial Cells Few Calcium Oxalate Crystal Rare Urine Mucus Rare Urine Yeast Rare 11/24/16 11/24/16 11/24/16 05:00 05:00 06:00 WBC RBC Hgb Hct MCV MCH MCHC RDW Plt Count MPV Total Counted Neutrophils % Neutrophils % (Manual) Lymphocytes % Lymphocytes % (Manual) Monocytes % (Manual) Eosinophils % (Manual) Platelet Estimate Platelet Comment Sodium 138 Potassium 4.5 Chloride 106 Carbon Dioxide 20 L Anion Gap 12 BUN 74 H Creatinine 2.9 H Creat Clearance w eGFR 16.19 POC Glucometer [phone] Random Glucose 178 H Calcium 9.2 Total Bilirubin 0.9 D AST 48 H ALT 68 Alkaline Phosphatase 120 H Troponin I 0.30 H Cancelled Total Protein 6.9 Albumin 3.5 Urine Color Urine Appearance Urine pH Ur Specific [place] Urine Protein Urine Glucose (UA) Urine Ketones Urine Blood Urine Nitrite Urine Bilirubin Urine Urobilinogen Urine RBC Urine WBC Ur Epithelial Cells Calcium Oxalate Crystal Urine Mucus Urine Yeast Problem List - Problems (1) Afib Code(s): I48.91 - UNSPECIFIED ATRIAL FIBRILLATION (2) CKD (chronic kidney disease) stage 4, GFR 15-29 ml/min Code(s): N18.4 - CHRONIC KIDNEY DISEASE, STAGE 4 (SEVERE) (3) Non-insulin dependent type 2 diabetes mellitus Code(s): E11.9 - TYPE 2 DIABETES MELLITUS WITHOUT COMPLICATIONS (4) Acute CHF (congestive heart failure) Code(s): I50.9 - HEART FAILURE, UNSPECIFIED Qualifiers: Congestive heart failure type: unspecified congestive heart failure type Qualified Code(s): I50.9 - Heart failure, unspecified (5) CAD (coronary artery disease) Code(s): I25.10 - ATHSCL HEART DISEASE OF [place] CORONARY ARTERY W/O ANG PCTRS Qualifiers: Coronary Disease-Associated Artery/Lesion type: [place] artery Associated angina: without angina (6) CKD (chronic kidney disease) Code(s): N18.9 - CHRONIC KIDNEY DISEASE, UNSPECIFIED Qualifiers: Chronic kidney disease stage: stage 4 (severe) Qualified Code(s): N18.4 - Chronic kidney disease, stage 4 (severe) (7) Shortness of breath Code(s): R06.02 - SHORTNESS OF BREATH Assessment/Plan Taper and D/C Cardizem drip O2 as needed Lasix Daily weights Monitor off ABX PO as tolerated Gout meds Will have sleep apnea screen as an outpatient (set up for the ) Cardiac Telemetry monitoring Dr Moy Critical care time spent in reviewing chart, evaluating patient and formulating plan - 35 minutes. Problem List - Problems (1) Afib Code(s): I48.91 - UNSPECIFIED ATRIAL FIBRILLATION (2) CKD (chronic kidney disease) stage 4, GFR 15-29 ml/min Code(s): N18.4 - CHRONIC KIDNEY DISEASE, STAGE 4 (SEVERE) (3) Non-insulin dependent type 2 diabetes mellitus Code(s): E11.9 - TYPE 2 DIABETES MELLITUS WITHOUT COMPLICATIONS (4) Acute CHF (congestive heart failure) Code(s): I50.9 - HEART FAILURE, UNSPECIFIED Qualifiers: Congestive heart failure type: unspecified congestive heart failure type Qualified Code(s): I50.9 - Heart failure, unspecified (5) CAD (coronary artery disease) Code(s): I25.10 - ATHSCL HEART DISEASE OF [place] CORONARY ARTERY W/O ANG PCTRS Qualifiers: Coronary Disease-Associated Artery/Lesion type: [place] artery Associated angina: without angina (6) CKD (chronic kidney disease) Code(s): N18.9 - CHRONIC KIDNEY DISEASE, UNSPECIFIED Qualifiers: Chronic kidney disease stage: stage 4 (severe) Qualified Code(s): N18.4 - Chronic kidney disease, stage 4 (severe) (7) Shortness of breath Code(s): R06.02 - SHORTNESS OF BREATH
--- NOTE | 2016-11-24 13:51 | PN ---
Progress Note, Physician History of Present Illness: 66yo F with PMH of afib (on Eliquis), dm, ckd, presents c/o sob. Pt reports that she had trouble breathing all day long. At 10pm she went to sleep but was woken up because of trouble breathing prompting her to come to the ER. She presents in rapid afib with O2 sats in the high 80%'s. Pt normally takes Cardizem, but she did not take her Cardizem yesterday. Surgery; metallic MVR 2002, bovine MVR 2006, HD fistula, gall bladder PMH DM, HTN, lipids, GERD, asthma - Current Medication List Current Medications: Active Medications Acetaminophen (Tylenol -) 650 mg PO Q4H PRN PRN Reason: FEVER OR PAIN Last Admin: 11/23/16 22:33 Dose: 650 mg Apixaban (Eliquis -) 2.5 mg PO DAILY [facility] Ascorbic Acid (Vitamin C -) 500 mg PO DAILY [facility] Last Admin: 11/24/16 09:54 Dose: 500 mg Aspirin (Asa -) 81 mg PO DAILY [facility] Last Admin: 11/24/16 09:55 Dose: 81 mg Calcium Carbonate (Os-Jimi 500mg -) 500 mg PO DAILY [facility] Last Admin: 11/24/16 09:55 Dose: 500 mg Carvedilol (Coreg -) 25 mg PO BID [facility] Last Admin: 11/24/16 09:54 Dose: 25 mg Chlorhexidine Gluconate (Hibiclens For Decolonization -) 1 applic TP HS [facility] Last Admin: 11/23/16 21:40 Dose: 1 applic Cyanocobalamin (Vitamin B12 -) 250 mcg PO DAILY [facility] Last Admin: 11/24/16 09:58 Dose: 250 mcg Cyclopentolate HCl (Cyclogyl 1% Eye Drops -) 1 drop OD TID [facility] Last Admin: 11/24/16 13:45 Dose: 1 drop Diltiazem HCl (Cardizem -) 60 mg PO TID [facility] Last Admin: 11/24/16 09:55 Dose: 60 mg Ergocalciferol (Drisdol -) 50,000 unit PO Mo@1000 [facility] Last Admin: 11/24/16 09:55 Dose: 50,000 unit Ferrous Sulfate (Feosol -) 325 mg PO DAILY [facility] Last Admin: 11/24/16 10:03 Dose: 325 mg Glimepiride (Amaryl -) 1 mg PO DAILY@0700 [facility] Last Admin: 11/24/16 06:19 Dose: 1 mg Hydrochlorothiazide (Hctz -) 25 mg PO DAILY [facility] Last Admin: 11/24/16 10:03 Dose: 25 mg Insulin Aspart (Novolog Vial Sliding Scale -) 1 vial SQ TIDAC [facility] PRN Reason: Protocol Last Admin: 11/24/16 11:19 Dose: 2 units Mupirocin (Bactroban Ointment (For Decolonization) -) 1 applic NS BID [facility] Stop: 11/28/16 21:59 Last Admin: 11/24/16 11:11 Dose: 1 applic Pantoprazole Sodium (Protonix -) 40 mg PO DAILY [facility] Last Admin: 11/24/16 09:59 Dose: 40 mg - Objective Vital Signs: Vital Signs Temperature 98 F 11/24/16 10:02 Pulse Rate 93 H 11/24/16 10:02 Respiratory Rate 21 11/24/16 10:02 Blood Pressure 167/80 11/24/16 10:02 O2 Sat by Pulse Oximetry (%) 100 11/24/16 09:00 Eyes: Yes: WNL, Conjunctiva Clear, EOM Intact HENT: Yes: WNL, Atraumatic, Normocephalic Neck: Yes: WNL, Supple, Trachea Midline Cardiovascular: Yes: Pulse Irregular, Murmur, S1, S2 Respiratory: Yes: WNL, Regular, CTA Bilaterally Gastrointestinal: Yes: WNL, Normal Bowel Sounds Genitourinary: Yes: WNL Musculoskeletal: Yes: WNL Extremities: Yes: WNL Edema: No Integumentary: Yes: WNL Neurological: Yes: WNL, Alert, Oriented ...Motor Strength: WNL Psychiatric: Yes: WNL Labs: CBC, BMP 11/24/16 05:00 11/24/16 05:00 INR, PTT INR 1.32 (0.82-1.09) H 11/23/16 03:00 Laboratory Tests 11/23/16 11/23/16 11/23/16 03:00 03:00 03:00 WBC 9.8 RBC 4.23 Hgb 11.9 Hct 36.4 MCV 85.9 MCH 28.2 MCHC 32.8 RDW 16.7 H Plt Count 205 MPV 8.9 Total Counted Neutrophils % 93.8 H Neutrophils % (Manual) Lymphocytes % 3.7 L D Lymphocytes % (Manual) Monocytes % 2.0 L Monocytes % (Manual) Eosinophils % 0.1 D Eosinophils % (Manual) Basophils % 0.4 Platelet Estimate Platelet Comment PT with INR 14.60 H INR 1.32 H Sodium Cancelled Potassium Cancelled Chloride Cancelled Carbon Dioxide Cancelled Anion Gap Cancelled BUN Cancelled Creatinine Cancelled Creat Clearance w eGFR Cancelled POC Glucometer Random Glucose Cancelled Lactic Acid Calcium Cancelled Magnesium Total Bilirubin Cancelled AST Cancelled ALT Cancelled Alkaline Phosphatase Cancelled Creatine Kinase Creatine Kinase Index CK-MB (CK-2) Troponin I B-Natriuretic Peptide Total Protein Cancelled Albumin Cancelled Urine Color Urine Appearance Urine pH Ur Specific [place] Urine Protein Urine Glucose (UA) Urine Ketones Urine Blood Urine Nitrite Urine Bilirubin Urine Urobilinogen Urine RBC Urine WBC Ur Epithelial Cells Calcium Oxalate Crystal Urine Mucus Urine Yeast 11/23/16 11/23/16 11/23/16 03:00 03:00 03:26 WBC RBC Hgb Hct MCV MCH MCHC RDW Plt Count MPV Total Counted Neutrophils % Neutrophils % (Manual) Lymphocytes % Lymphocytes % (Manual) Monocytes % Monocytes % (Manual) Eosinophils % Eosinophils % (Manual) Basophils % Platelet Estimate Platelet Comment PT with INR INR Sodium 138 Potassium 5.8 H D Chloride 109 H Carbon Dioxide 13 L D Anion Gap 16 BUN 79 H Creatinine 3.1 H Creat Clearance w eGFR 14.99 POC Glucometer Random Glucose 254 H D Lactic Acid 1.1 Calcium 9.7 Magnesium Cancelled Total Bilirubin 0.9 D AST 53 H D ALT 67 D Alkaline Phosphatase 145 H D Creatine Kinase Cancelled Creatine Kinase Index CK-MB (CK-2) Troponin I Cancelled B-Natriuretic Peptide Total Protein 7.8 D Albumin 3.9 D Urine Color Urine Appearance Urine pH Ur Specific [place] Urine Protein Urine Glucose (UA) Urine Ketones Urine Blood Urine Nitrite Urine Bilirubin Urine Urobilinogen Urine RBC Urine WBC Ur Epithelial Cells Calcium Oxalate Crystal Urine Mucus Urine Yeast 11/23/16 11/23/16 11/23/16 06:10 07:35 16:38 WBC RBC Hgb Hct MCV MCH MCHC RDW Plt Count MPV Total Counted Neutrophils % Neutrophils % (Manual) Lymphocytes % Lymphocytes % (Manual) Monocytes % Monocytes % (Manual) Eosinophils % Eosinophils % (Manual) Basophils % Platelet Estimate Platelet Comment PT with INR INR Sodium 138 Potassium 4.8 Chloride 109 H Carbon Dioxide 18 L D Anion Gap 11 BUN 74 H Creatinine 3.1 H Creat Clearance w eGFR 14.99 POC Glucometer [phone] Random Glucose 171 H D Lactic Acid Calcium 10.3 H Magnesium 1.4 L D Total Bilirubin 0.7 D AST 49 H ALT 72 Alkaline Phosphatase 145 H Creatine Kinase 182 Creatine Kinase Index 1.4 CK-MB (CK-2) 2.560 Troponin I 0.33 H B-Natriuretic Peptide 21220.78 H Total Protein 8.2 Albumin 3.9 Urine Color Straw Urine Appearance Slcloudy Urine pH 5.0 Ur Specific [place] 1.015 Urine Protein 2+ H Urine Glucose (UA) 1+ H Urine Ketones Negative Urine Blood 1+ H Urine Nitrite Negative Urine Bilirubin Negative Urine Urobilinogen Negative Urine RBC 6 Urine WBC 1 Ur Epithelial Cells Few Calcium Oxalate Crystal Rare Urine Mucus Rare Urine Yeast Rare 11/24/16 11/24/16 11/24/16 05:00 05:00 05:00 WBC 17.7 H D RBC 3.90 Hgb 11.2 Hct 33.3 MCV 85.4 MCH 28.7 MCHC 33.6 RDW 16.1 H Plt Count 203 MPV 8.8 Total Counted 100 Neutrophils % No Result Required. Neutrophils % (Manual) 86 H Lymphocytes % No Result Required. Lymphocytes % (Manual) 11 Monocytes % Monocytes % (Manual) 2 L Eosinophils % Eosinophils % (Manual) 1 Basophils % Platelet Estimate Adequate Platelet Comment No clotting detected PT with INR INR Sodium 138 Potassium 4.5 Chloride 106 Carbon Dioxide 20 L Anion Gap 12 BUN 74 H Creatinine 2.9 H Creat Clearance w eGFR 16.19 POC Glucometer Random Glucose 178 H Lactic Acid Calcium 9.2 Magnesium Total Bilirubin 0.9 D AST 48 H ALT 68 Alkaline Phosphatase 120 H Creatine Kinase Creatine Kinase Index CK-MB (CK-2) Troponin I 0.30 H Cancelled B-Natriuretic Peptide Total Protein 6.9 Albumin 3.5 Urine Color Urine Appearance Urine pH Ur Specific [place] Urine Protein Urine Glucose (UA) Urine Ketones Urine Blood Urine Nitrite Urine Bilirubin Urine Urobilinogen Urine RBC Urine WBC Ur Epithelial Cells Calcium Oxalate Crystal Urine Mucus Urine Yeast 11/24/16 06:00 WBC RBC Hgb Hct MCV MCH MCHC RDW Plt Count MPV Total Counted Neutrophils % Neutrophils % (Manual) Lymphocytes % Lymphocytes % (Manual) Monocytes % Monocytes % (Manual) Eosinophils % Eosinophils % (Manual) Basophils % Platelet Estimate Platelet Comment PT with INR INR Sodium Potassium Chloride Carbon Dioxide Anion Gap BUN Creatinine Creat Clearance w eGFR POC Glucometer [phone] Random Glucose Lactic Acid Calcium Magnesium Total Bilirubin AST ALT Alkaline Phosphatase Creatine Kinase Creatine Kinase Index CK-MB (CK-2) Troponin I B-Natriuretic Peptide Total Protein Albumin Urine Color Urine Appearance Urine pH Ur Specific [place] Urine Protein Urine Glucose (UA) Urine Ketones Urine Blood Urine Nitrite Urine Bilirubin Urine Urobilinogen Urine RBC Urine WBC Ur Epithelial Cells Calcium Oxalate Crystal Urine Mucus Urine Yeast Problem List - Problems (1) Afib Code(s): I48.91 - UNSPECIFIED ATRIAL FIBRILLATION (2) CKD (chronic kidney disease) stage 4, GFR 15-29 ml/min Code(s): N18.4 - CHRONIC KIDNEY DISEASE, STAGE 4 (SEVERE) (3) Hyperkalemia Code(s): E87.5 - HYPERKALEMIA (4) Non-insulin dependent type 2 diabetes mellitus Code(s): E11.9 - TYPE 2 DIABETES MELLITUS WITHOUT COMPLICATIONS (5) Acute CHF (congestive heart failure) Code(s): I50.9 - HEART FAILURE, UNSPECIFIED Qualifiers: Congestive heart failure type: unspecified congestive heart failure type Qualified Code(s): I50.9 - Heart failure, unspecified (6) CAD (coronary artery disease) Code(s): I25.10 - ATHSCL HEART DISEASE OF [place] CORONARY ARTERY W/O ANG PCTRS Qualifiers: Coronary Disease-Associated Artery/Lesion type: [place] artery Associated angina: without angina (7) CKD (chronic kidney disease) Code(s): N18.9 - CHRONIC KIDNEY DISEASE, UNSPECIFIED Qualifiers: Chronic kidney disease stage: stage 4 (severe) Qualified Code(s): N18.4 - Chronic kidney disease, stage 4 (severe) (8) Shortness of breath Code(s): R06.02 - SHORTNESS OF BREATH Assessment/Plan af with RVR after stopping cardizem htn chf dm asthma s/p MVR - reop bovine ischemic cmp systolic chf plan Cardizem drip for now change to po as tolerated cont coreg cont ac agree with lasix echo will f/u
--- NOTE | 2016-11-24 13:52 | EKG ---
Test Reason : Blood Pressure : / mmHG Vent. Rate : 087 BPM Atrial Rate : 300 BPM P-R Int : 000 ms QRS Dur : 110 ms QT Int : 406 ms P-R-T Axes : 000 024 128 degrees QTc Int : 488 ms ATRIAL FLUTTER WITH VARIABLE A-V BLOCK PROLONGED QT ABNORMAL ECG WHEN COMPARED WITH ECG OF 23-NOV-2016 01:44, ATRIAL FLUTTER HAS REPLACED ATRIAL FIBRILLATION VENT. RATE HAS DECREASED BY 55 BPM T WAVE INVERSION NOW EVIDENT IN LATERAL LEADS Confirmed by OSCAR PACK MD ([id number]) on 11/24/2016 1:52:01 PM Referred By: CARLOS ORNELAS DR Confirmed By:OSCAR PACK MD
--- NOTE | 2016-11-24 14:02 | EKG ---
Test Reason : Blood Pressure : / mmHG Vent. Rate : 142 BPM Atrial Rate : 147 BPM P-R Int : 000 ms QRS Dur : 102 ms QT Int : 316 ms P-R-T Axes : 000 -36 097 degrees QTc Int : 486 ms ATRIAL FIBRILLATION WITH RAPID VENTRICULAR RESPONSE LEFT AXIS DEVIATION MINIMAL VOLTAGE CRITERIA FOR LVH, MAY BE NORMAL VARIANT NONSPECIFIC T WAVE ABNORMALITY ABNORMAL ECG WHEN COMPARED WITH ECG OF 17-MAY-2016 12:34, VENT. RATE HAS INCREASED BY 52 BPM Confirmed by OSCAR PACK MD ([id number]) on 11/24/2016 2:02:18 PM Referred By: Confirmed By:OSCAR PACK MD
[2016-11-24] MEDS ORDERED: INSULIN (NOVOLOG) ASPART 100 UNITS/ML 10ML VIAL ONE ×2 (16:05→16:15)
[2016-11-24] MEDS ORDERED: COLCHICINE 0.6 MG TABLET (FP) PO ONE (16:30)
[2016-11-24] MEDS: ACETAMINOPHEN 325 MG TABLET (FP) PO PRN (18:11)
[2016-11-24] MEDS: CHLORHEXIDINE GLUCONATE 4% CLEANSER FOR DECOLONIZATION TP SCH (21:39)
[2016-11-24] MEDS: APIXABAN 2.5 MG TABLET PO SCH (21:40)
[2016-11-25] MEDS ORDERED: PT OWN MED DRAWER 7, Y5N ONE ×4 (06:15→20:49)
[2016-11-25] MEDS: dilTIAZem HCL 60 MG TABLET (FP) PO SCH ×3 (06:18→21:26)
[2016-11-25] MEDS: CYCLOPENTOLATE HCL 1% OPHTH SOLN 2 ML BOTTLE OD SCH ×3 (06:19→21:37)
[2016-11-25] MEDS: GLIMEPIRIDE 1 MG TABLET (FP) PO SCH (06:20)
[2016-11-25] MEDS: INSULIN SLIDING SCALE (NOVOLOG) 1 VIAL SQ SCH ×3 (06:20→17:36)
[2016-11-25 08:02] LABS: BASOPHIL 0.5 % (0-2.0); EOSINOPHIL 1.7 % (0-4.5); MCHC 32.3 g/dl (32.0-36.0); MEAN CELL VOLUME 86.6 fl (80-96); MEAN PLT VOLUME 8.5 fl (7.5-11.1); NEUTROPHILS 83.8 % (42.8-82.8); PLATELET COUNT 205 K/MM3 (134-434); RDW 15.8 % (11.6-15.6); WHITE BLOOD COUNT 10.1 K/mm3 (4.0-10.0)
--- NOTE | 2016-11-25 09:03 | PN ---
Progress Note (short form) - Note Progress Note: 66 with DM blind afib ckd stage 4 Cr at her baseline 3 sees me in the office A1c 7.3 last In with rapid afib as she had not taken cardizem for 2 days cardizem 60mg TID now on it rate controlled On eliquis 2.5mg bid feels well suggest at dc keep on cardizem dc HCTZ uric acid was 11 keep on lasix 40 mg TIW FOLLOW WEIGHTS CR STABLE HB 11 WILL FOLLOW
[2016-11-25 09:10] LABS: ALBUMIN 3.5 g/dl (3.4-5.0); ALK PHOS 114 U/L (45-117); ANION GAP 12 (8-16); BILIRUBIN,TOTAL 0.7 mg/dL (0.2-1.0); CALCIUM 9.4 mg/dL (8.5-10.1); CO2 19 mmol/L (21-32); CREATININE 3.1 mg/dL (0.55-1.02); GLUCOSE,RANDOM 148 mg/dL (74-106); SGOT/AST 31 U/L (15-37); SGPT/ALT 60 U/L (12-78); THYROID STIMULATING HORMONE 1.77 uIU/ml (0.358-3.74); TOT PROT 7.2 g/dl (6.4-8.2)
[2016-11-25] MEDS ORDERED: HYDROCHLOROTHIAZIDE 25 MG TABLET (FP) PO SCH (10:00)
[2016-11-25] MEDS: CYANOCOBALAMIN (VITAMIN B-12) 100 MCG TABLET PO SCH (10:20)
[2016-11-25] MEDS: APIXABAN 2.5 MG TABLET PO SCH ×2 (10:20→21:26)
[2016-11-25] MEDS: CARVEDILOL 25 MG TABLET (FP) PO SCH ×2 (10:20→21:25)
[2016-11-25] MEDS: ASPIRIN 81 MG CHEWABLE TABLETS PO SCH (10:21)
[2016-11-25] MEDS: ASCORBIC ACID 500 MG TABLET (FP) PO SCH (10:21)
[2016-11-25] MEDS: CALCIUM (OYSTER SHELL) 500 MG TABLET (FP) PO SCH (10:21)
[2016-11-25] MEDS: FERROUS SO4 325 MG TABLET (FP) PO SCH (10:21)
[2016-11-25] MEDS: PANTOPRAZOLE 40 MG TABLET (FP) PO SCH (10:21)
--- NOTE | 2016-11-25 11:18 | PN ---
Progress Note, Physician Chief Complaint: Pt had sharp chest pain taking a deep breath this morning; the pain lasted only a second (pt gives hx of negative stress test done as outpt 10/2016). Denies palpitations, dyspnea. History of Present Illness: The patient is a 66 year old black female who comes from home for evaluation of shortness of breath. The patient is normally on Cardizem and did not take her medication for the last couple of days. On arrival, she presents with rapid atrial fibrillation at a rate of 130-140. Her initial O2 saturation with room air was in the high 80%, on 2 L of O2 is 97%. She denies chest pain or any other complaints. - Current Medication List Current Medications: Active Medications Acetaminophen (Tylenol -) 650 mg PO Q4H PRN PRN Reason: FEVER OR PAIN Apixaban (Eliquis -) 2.5 mg PO BID [facility] Last Admin: 11/25/16 10:20 Dose: 2.5 mg Ascorbic Acid (Vitamin C -) 500 mg PO DAILY [facility] Last Admin: 11/25/16 10:21 Dose: 500 mg Aspirin (Asa -) 81 mg PO DAILY [facility] Last Admin: 11/25/16 10:21 Dose: 81 mg Calcium Carbonate (Os-Jimi 500mg -) 500 mg PO DAILY [facility] Last Admin: 11/25/16 10:21 Dose: 500 mg Carvedilol (Coreg -) 25 mg PO BID [facility] Last Admin: 11/25/16 10:20 Dose: 25 mg Chlorhexidine Gluconate (Hibiclens For Decolonization -) 1 applic TP HS [facility] Last Admin: 11/24/16 21:39 Dose: Not Given Colchicine (Colcrys -) 0.3 mg PO DAILY PRN PRN Reason: PAIN Cyanocobalamin (Vitamin B12 -) 250 mcg PO DAILY [facility] Last Admin: 11/25/16 10:20 Dose: 250 mcg Cyclopentolate HCl (Cyclogyl 1% Eye Drops -) 1 drop OD TID [facility] Last Admin: 11/25/16 06:19 Dose: 1 drop Diltiazem HCl (Cardizem -) 60 mg PO TID [facility] Last Admin: 11/25/16 06:18 Dose: 60 mg Ergocalciferol (Drisdol -) 50,000 unit PO Mo@1000 [facility] Ferrous Sulfate (Feosol -) 325 mg PO DAILY [facility] Last Admin: 11/25/16 10:21 Dose: 325 mg Glimepiride (Amaryl -) 1 mg PO DAILY@0700 [facility] Last Admin: 11/25/16 06:20 Dose: Not Given Hydrochlorothiazide (Hctz -) 25 mg PO DAILY [facility] Last Admin: 11/25/16 10:20 Dose: 25 mg Insulin Aspart (Novolog Vial Sliding Scale -) 1 vial SQ TIDAC [facility] PRN Reason: Protocol Last Admin: 11/25/16 06:20 Dose: Not Given Mupirocin (Bactroban Ointment (For Decolonization) -) 1 applic NS BID [facility] Stop: 11/28/16 21:59 Last Admin: 11/24/16 21:39 Dose: Not Given Pantoprazole Sodium (Protonix -) 40 mg PO DAILY [facility] Last Admin: 11/25/16 10:21 Dose: 40 mg - Objective Vital Signs: Vital Signs Temperature 98.3 F 11/25/16 06:00 Pulse Rate 75 11/25/16 06:00 Respiratory Rate 20 11/25/16 06:00 Blood Pressure 157/83 11/25/16 06:00 O2 Sat by Pulse Oximetry (%) 99 11/24/16 21:00 Constitutional: Yes: Calm Eyes: Yes: Other (blindness) Neck: Yes: WNL Cardiovascular: Yes: S1 (varies in intensity), S2 Respiratory: Yes: Regular Gastrointestinal: Yes: Soft ...Rectal Exam: Yes: Deferred Genitourinary: No: Anuria Musculoskeletal: Yes: Muscle Weakness Extremities: Yes: Cool Edema: No Peripheral Pulses WNL: No Peripheral Pulses: Left Doralis Pedis: 1+, Right Dorsalis Pedis: 1+ Neurological: Yes: Alert, Oriented, Weakness Psychiatric: Yes: Alert, Oriented Labs: CBC, BMP 11/25/16 05:35 11/25/16 05:35 INR, PTT INR 1.32 (0.82-1.09) H 11/23/16 03:00 Abnormal Lab Results 11/25/16 11/25/16 05:35 05:35 WBC 10.1 H D RDW 15.8 H Neutrophils % 83.8 H Lymphocytes % 7.4 L D Carbon Dioxide 19 L BUN 83 H Creatinine 3.1 H Random Glucose 148 H - ....Imaging Ultrasound: Report Reviewed (ECHO: severely reduced LVEF) Problem List - Problems (1) Acute on chronic systolic and diastolic heart failure, NYHA class 3 Assessment/Plan: Increase carvedilol to 50 mg bid (severe systolic LV dysfunction; obesity; AF; HTN). Gradually decrease dose of diltiazem (ideally, avoid its use with severe LV dysfunction). Consider hydralazine + isordil (systolic CHF; HTN). Problematic using ACEI or spironolactone due to renal dysfuncgtion, hyperkalemia. F/u records of recent stress MIBI. Pt says she wore a Life Vest two years ago, and was scheduled for ICD implantation, but cancelled it from fear. She was asked to reconsider it. F/u lipids; keep LDL cholesterol < 70 mg/dL. Code(s): I50.43 - ACUTE ON CHRONIC COMBINED SYSTOLIC AND DIASTOLIC HRT FAIL (2) Afib Code(s): I48.91 - UNSPECIFIED ATRIAL FIBRILLATION (3) CKD (chronic kidney disease) stage 4, GFR 15-29 ml/min Code(s): N18.4 - CHRONIC KIDNEY DISEASE, STAGE 4 (SEVERE) (4) Non-insulin dependent type 2 diabetes mellitus Code(s): E11.9 - TYPE 2 DIABETES MELLITUS WITHOUT COMPLICATIONS (5) Shortness of breath Code(s): R06.02 - SHORTNESS OF BREATH (6) Obesity Code(s): E66.9 - OBESITY, UNSPECIFIED
[2016-11-25] MEDS: COLCHICINE 0.6 MG TABLET (FP) PO PRN (11:47)
--- NOTE | 2016-11-25 12:35 | PN ---
Progress Note (short form) - Note Progress Note: CBC, BMP 11/25/16 05:35 11/25/16 05:35 Vital Signs Period Temp Pulse Resp BP Sys/Dougherty Pulse Ox Last 24 Hr 98.1 F-99.1 F 72-84 20-20 104-158/55-83 93-99 S1S2 RRR lungs cta abd soft NT no edema aaox3 IMP CHF-severely reduced LVSF on echo rapid Afib HTN NIDDM diabetic retinopathy diabetic renal disease Plan increase coreg decrease cardizem outpt f/up for AICD recent stress test was this summer dc ahsan can have flu shot physical therapy
[2016-11-25] MEDS: ACETAMINOPHEN 325 MG TABLET (FP) PO PRN ×2 (14:45→21:39)
[2016-11-25 16:13] LABS: CHOLESTEROL 156 mg/dL (50-200)
[2016-11-25] MEDS: MUPIROCIN 2% TOPICAL OINTMENT FOR DECOLONIZATION NS SCH ×2 (17:34→21:33)
[2016-11-25] MEDS ORDERED: INSULIN (NOVOLOG) ASPART 100 UNITS/ML 10ML VIAL ONE (17:39)
[2016-11-25] MEDS: CHLORHEXIDINE GLUCONATE 4% CLEANSER FOR DECOLONIZATION TP SCH (21:35)
[2016-11-26] MEDS ORDERED: PT OWN MED DRAWER 7, Y5N ONE (05:57)
[2016-11-26] MEDS: GLIMEPIRIDE 1 MG TABLET (FP) PO SCH (06:19)
[2016-11-26] MEDS: INSULIN SLIDING SCALE (NOVOLOG) 1 VIAL SQ SCH ×3 (06:20→17:35)
[2016-11-26] MEDS: CYCLOPENTOLATE HCL 1% OPHTH SOLN 2 ML BOTTLE OD SCH ×2 (06:20→14:35)
[2016-11-26] MEDS: dilTIAZem HCL 60 MG TABLET (FP) PO SCH (06:20)
[2016-11-26] MEDS ORDERED: INSULIN (NOVOLOG) ASPART 100 UNITS/ML 10ML VIAL ONE (06:25)
[2016-11-26 08:16] LABS: BASOPHIL 0.6 % (0-2.0); EOSINOPHIL 0.7 % (0-4.5); MCH 27.5 pg (25.7-33.7); MCHC 31.9 g/dl (32.0-36.0); MEAN CELL VOLUME 86.5 fl (80-96); MEAN PLT VOLUME 8.4 fl (7.5-11.1); NEUTROPHILS 88.5 % (42.8-82.8); PLATELET COUNT 207 K/MM3 (134-434); RDW 15.5 % (11.6-15.6)
[2016-11-26 09:07] LABS: ALBUMIN 3.4 g/dl (3.4-5.0); ALK PHOS 110 U/L (45-117); ANION GAP 16 (8-16); BILIRUBIN,TOTAL 0.7 mg/dL (0.2-1.0); CALCIUM 9.3 mg/dL (8.5-10.1); CO2 20 mmol/L (21-32); CREATININE 3.3 mg/dL (0.55-1.02); GLUCOSE,RANDOM 185 mg/dL (74-106); SGOT/AST 15 U/L (15-37); SGPT/ALT 39 U/L (12-78); TOT PROT 6.8 g/dl (6.4-8.2)
--- NOTE | 2016-11-26 09:40 | DS ---
Physical Examination Vital Signs: Vital Signs Temperature 98.9 F 11/26/16 06:00 Pulse Rate 77 11/26/16 06:00 Respiratory Rate 20 11/26/16 06:00 Blood Pressure 137/72 11/26/16 06:00 O2 Sat by Pulse Oximetry (%) 96 11/25/16 21:00 Constitutional: Yes: No Distress Eyes: Yes: Other (blind, left eye evulsion) HENT: Yes: Normocephalic Neck: Yes: Trachea Midline Cardiovascular: Yes: Pulse Irregular (aflutter on monitor) Respiratory: Yes: CTA Bilaterally Gastrointestinal: Yes: Normal Bowel Sounds, Soft Extremities: Yes: WNL Edema: No Neurological: Yes: WNL Labs: CBC, BMP 11/26/16 05:46 11/26/16 05:46 Discharge Summary Reason For Visit: CHRONIC KIDNEY DISEASE STAGE IV;DIABETES;HYPERKALE Current Active Problems Acute on chronic systolic and diastolic heart failure, NYHA class 3 (Acute) Afib (Acute) CKD (chronic kidney disease) stage 4, GFR 15-29 ml/min (Acute) Hyperkalemia (Acute) Non-insulin dependent type 2 diabetes mellitus (Acute) Obesity (Acute) Hospital Course: admitted for rapid afib, acute systolic congestive heart failure to ICU on cardizem drip. received iv lasix. symptoms improved with treatment. echo showed severe global hypokinesia. medications were adjusted. currently feels better, no chest pain, no dyspnea. if HR remains controlled and able to participate in physical therapy will dc her with VNS. Condition: Guarded - Instructions Disposition: HOME - Home Medications Comprehensive Discharge Medication List: Ambulatory Orders Current Medications Acetaminophen (Tylenol -) 650 mg PO Q4H PRN PRN Reason: FEVER OR PAIN Last Admin: 11/25/16 21:39 Dose: 650 mg Apixaban (Eliquis -) 2.5 mg PO BID [facility] Last Admin: 11/25/16 21:26 Dose: 2.5 mg Ascorbic Acid (Vitamin C -) 500 mg PO DAILY [facility] Last Admin: 11/25/16 10:21 Dose: 500 mg Aspirin (Asa -) 81 mg PO DAILY [facility] Last Admin: 11/25/16 10:21 Dose: 81 mg Calcium Carbonate (Os-Jimi 500mg -) 500 mg PO DAILY [facility] Last Admin: 11/25/16 10:21 Dose: 500 mg Carvedilol (Coreg -) 50 mg PO BID [facility] Last Admin: 11/25/16 21:25 Dose: 50 mg Chlorhexidine Gluconate (Hibiclens For Decolonization -) 1 applic TP HS [facility] Last Admin: 11/25/16 21:35 Dose: Not Given Colchicine (Colcrys -) 0.3 mg PO DAILY PRN PRN Reason: PAIN Last Admin: 11/25/16 11:47 Dose: 0.3 mg Cyanocobalamin (Vitamin B12 -) 250 mcg PO DAILY [facility] Last Admin: 11/25/16 10:20 Dose: 250 mcg Cyclopentolate HCl (Cyclogyl 1% Eye Drops -) 1 drop OD TID [facility] Last Admin: 11/26/16 06:20 Dose: 1 drop Diltiazem HCl (Cardizem Cd -) 120 mg PO DAILY [facility] Ergocalciferol (Drisdol -) 50,000 unit PO Mo@1000 [facility] Ferrous Sulfate (Feosol -) 325 mg PO DAILY [facility] Last Admin: 11/25/16 10:21 Dose: 325 mg Furosemide (Lasix -) 40 mg PO Q2D@1000 [facility] Glimepiride (Amaryl -) 1 mg PO DAILY@0700 [facility] Last Admin: 11/26/16 06:19 Dose: 1 mg Insulin Aspart (Novolog Vial Sliding Scale -) 1 vial SQ TIDAC [facility] PRN Reason: Protocol Last Admin: 11/26/16 06:20 Dose: 2 units Mupirocin (Bactroban Ointment (For Decolonization) -) 1 applic NS BID [facility] Stop: 11/28/16 21:59 Last Admin: 11/25/16 21:33 Dose: Not Given Pantoprazole Sodium (Protonix -) 40 mg PO DAILY [facility] Last Admin: 11/25/16 10:21 Dose: 40 mg
[2016-11-26] MEDS ORDERED: FUROSEMIDE 40 MG TABLET (FP) PO SCH (10:00)
[2016-11-26] MEDS: ASCORBIC ACID 500 MG TABLET (FP) PO SCH (10:09)
[2016-11-26] MEDS: ACETAMINOPHEN 325 MG TABLET (FP) PO PRN (10:10)
[2016-11-26] MEDS: FERROUS SO4 325 MG TABLET (FP) PO SCH (10:10)
[2016-11-26] MEDS: ASPIRIN 81 MG CHEWABLE TABLETS PO SCH (10:10)
[2016-11-26] MEDS: CARVEDILOL 25 MG TABLET (FP) PO SCH ×2 (10:11→21:51)
[2016-11-26] MEDS: CALCIUM (OYSTER SHELL) 500 MG TABLET (FP) PO SCH (10:11)
[2016-11-26] MEDS: APIXABAN 2.5 MG TABLET PO SCH ×2 (10:11→21:51)
[2016-11-26] MEDS: CYANOCOBALAMIN (VITAMIN B-12) 100 MCG TABLET PO SCH (10:12)
[2016-11-26] MEDS: PANTOPRAZOLE 40 MG TABLET (FP) PO SCH (10:12)
[2016-11-26] MEDS: MUPIROCIN 2% TOPICAL OINTMENT FOR DECOLONIZATION NS SCH (10:16)
[2016-11-26] MEDS ORDERED: FLU VACCINE QUAD 60 MCG/0.5 ML (MDV 17-18) IM ONE (11:00)
--- NOTE | 2016-11-26 11:22 | PN ---
Progress Note, Physician History of Present Illness: 66yo F with PMH of afib (on Eliquis), dm, ckd, presents c/o sob. Pt reports that she had trouble breathing all day long. At 10pm she went to sleep but was woken up because of trouble breathing prompting her to come to the ER. She presents in rapid afib with O2 sats in the high 80%'s. Pt normally takes Cardizem, but she did not take her Cardizem yesterday. Surgery; metallic MVR 2002, bovine MVR 2006, HD fistula, gall bladder PMH DM, HTN, lipids, GERD, asthma - Current Medication List Current Medications: Active Medications Acetaminophen (Tylenol -) 650 mg PO Q4H PRN PRN Reason: FEVER OR PAIN Last Admin: 11/26/16 10:10 Dose: 650 mg Apixaban (Eliquis -) 2.5 mg PO BID [facility] Last Admin: 11/26/16 10:11 Dose: 2.5 mg Ascorbic Acid (Vitamin C -) 500 mg PO DAILY [facility] Last Admin: 11/26/16 10:09 Dose: 500 mg Aspirin (Asa -) 81 mg PO DAILY [facility] Last Admin: 11/26/16 10:10 Dose: 81 mg Calcium Carbonate (Os-Jimi 500mg -) 500 mg PO DAILY [facility] Last Admin: 11/26/16 10:11 Dose: 500 mg Carvedilol (Coreg -) 50 mg PO BID [facility] Last Admin: 11/26/16 10:11 Dose: 50 mg Chlorhexidine Gluconate (Hibiclens For Decolonization -) 1 applic TP HS [facility] Last Admin: 11/25/16 21:35 Dose: Not Given Colchicine (Colcrys -) 0.3 mg PO DAILY PRN PRN Reason: PAIN Last Admin: 11/25/16 11:47 Dose: 0.3 mg Cyanocobalamin (Vitamin B12 -) 250 mcg PO DAILY [facility] Last Admin: 11/26/16 10:12 Dose: 250 mcg Cyclopentolate HCl (Cyclogyl 1% Eye Drops -) 1 drop OD TID [facility] Last Admin: 11/26/16 06:20 Dose: 1 drop Diltiazem HCl (Cardizem Cd -) 120 mg PO DAILY [facility] Ergocalciferol (Drisdol -) 50,000 unit PO Mo@1000 [facility] Ferrous Sulfate (Feosol -) 325 mg PO DAILY [facility] Last Admin: 11/26/16 10:10 Dose: 325 mg Furosemide (Lasix -) 40 mg PO Q2D@1000 [facility] Last Admin: 11/26/16 10:09 Dose: 40 mg Glimepiride (Amaryl -) 1 mg PO DAILY@0700 [facility] Last Admin: 11/26/16 06:19 Dose: 1 mg Insulin Aspart (Novolog Vial Sliding Scale -) 1 vial SQ TIDAC [facility] PRN Reason: Protocol Last Admin: 11/26/16 10:27 Dose: Not Given Mupirocin (Bactroban Ointment (For Decolonization) -) 1 applic NS BID [facility] Stop: 11/28/16 21:59 Last Admin: 11/26/16 10:16 Dose: Not Given Pantoprazole Sodium (Protonix -) 40 mg PO DAILY [facility] Last Admin: 11/26/16 10:12 Dose: 40 mg - Objective Vital Signs: Vital Signs Temperature 98.9 F 11/26/16 06:00 Pulse Rate 65 11/26/16 10:10 Respiratory Rate 11/26/16 06:00 Blood Pressure 137/72 11/26/16 06:00 O2 Sat by Pulse Oximetry (%) 95 11/26/16 10:10 Eyes: Yes: WNL, Conjunctiva Clear, EOM Intact HENT: Yes: WNL, Atraumatic, Normocephalic Neck: Yes: WNL, Supple, Trachea Midline Cardiovascular: Yes: WNL, Regular Rate and Rhythm Respiratory: Yes: WNL, Regular, CTA Bilaterally Gastrointestinal: Yes: WNL, Normal Bowel Sounds Genitourinary: Yes: WNL Musculoskeletal: Yes: WNL Extremities: Yes: WNL Edema: No Integumentary: Yes: WNL Neurological: Yes: WNL, Alert, Oriented ...Motor Strength: WNL Psychiatric: Yes: WNL Labs: CBC, BMP 11/26/16 05:46 11/26/16 05:46 INR, PTT INR 1.32 (0.82-1.09) H 11/23/16 03:00 Problem List - Problems (1) Afib Code(s): I48.91 - UNSPECIFIED ATRIAL FIBRILLATION (2) CKD (chronic kidney disease) stage 4, GFR 15-29 ml/min Code(s): N18.4 - CHRONIC KIDNEY DISEASE, STAGE 4 (SEVERE) (3) Hyperkalemia Code(s): E87.5 - HYPERKALEMIA (4) Non-insulin dependent type 2 diabetes mellitus Code(s): E11.9 - TYPE 2 DIABETES MELLITUS WITHOUT COMPLICATIONS (5) Acute CHF (congestive heart failure) Code(s): I50.9 - HEART FAILURE, UNSPECIFIED Qualifiers: Congestive heart failure type: unspecified congestive heart failure type Qualified Code(s): I50.9 - Heart failure, unspecified (6) CAD (coronary artery disease) Code(s): I25.10 - ATHSCL HEART DISEASE OF [place] CORONARY ARTERY W/O ANG PCTRS Qualifiers: Coronary Disease-Associated Artery/Lesion type: alutiiq artery Associated angina: without angina (7) CKD (chronic kidney disease) Code(s): N18.9 - CHRONIC KIDNEY DISEASE, UNSPECIFIED Qualifiers: Chronic kidney disease stage: stage 4 (severe) Qualified Code(s): N18.4 - Chronic kidney disease, stage 4 (severe) (8) Shortness of breath Code(s): R06.02 - SHORTNESS OF BREATH Assessment/Plan - Problems (1) Acute on chronic systolic and diastolic heart failure, NYHA class 3 Assessment/Plan: Increase carvedilol to 50 mg bid (severe systolic LV dysfunction; obesity; AF; HTN). Gradually decrease dose of diltiazem (ideally, avoid its use with severe LV dysfunction). Consider hydralazine + isordil (systolic CHF; HTN). Problematic using ACEI or spironolactone due to renal dysfuncgtion, hyperkalemia. F/u records of recent stress MIBI. Pt says she wore a Life Vest two years ago, and was scheduled for ICD implantation, but cancelled it from fear. She was asked to reconsider it. F/u lipids; keep LDL cholesterol < 70 mg/dL. Code(s): I50.43 - ACUTE ON CHRONIC COMBINED SYSTOLIC AND DIASTOLIC HRT FAIL (2) Afib Code(s): I48.91 - UNSPECIFIED ATRIAL FIBRILLATION (3) CKD (chronic kidney disease) stage 4, GFR 15-29 ml/min Code(s): N18.4 - CHRONIC KIDNEY DISEASE, STAGE 4 (SEVERE) (4) Non-insulin dependent type 2 diabetes mellitus Code(s): E11.9 - TYPE 2 DIABETES MELLITUS WITHOUT COMPLICATIONS (5) Shortness of breath Code(s): R06.02 - SHORTNESS OF BREATH (6) Obesity Code(s): E66.9 - OBESITY, UNSPECIFIED
[2016-11-27 02:20] VITALS: PULSE 72
[2016-11-27] MEDS: INSULIN SLIDING SCALE (NOVOLOG) 1 VIAL SQ SCH ×2 (06:15→11:34)
[2016-11-27] MEDS ORDERED: PT OWN MED DRAWER 7, Y5N ONE (06:55)
[2016-11-27] MEDS: CYCLOPENTOLATE HCL 1% OPHTH SOLN 2 ML BOTTLE OD SCH ×2 (07:26→15:27)
[2016-11-27 08:06] LABS: BASOPHIL 0.4 % (0-2.0); EOSINOPHIL 0.8 % (0-4.5); MCH 27.7 pg (25.7-33.7); MCHC 31.9 g/dl (32.0-36.0); MEAN CELL VOLUME 86.9 fl (80-96); MEAN PLT VOLUME 8.1 fl (7.5-11.1); NEUTROPHILS 87.7 % (42.8-82.8); PLATELET COUNT 218 K/MM3 (134-434); RDW 15.8 % (11.6-15.6); WHITE BLOOD COUNT 13.1 K/mm3 (4.0-10.0)
[2016-11-27 08:44] LABS: ALBUMIN 3.3 g/dl (3.4-5.0); ALK PHOS 112 U/L (45-117); ANION GAP 10 (8-16); BILIRUBIN,TOTAL 0.5 mg/dL (0.2-1.0); CALCIUM 9.3 mg/dL (8.5-10.1); CO2 23 mmol/L (21-32); CREATININE 3.2 mg/dL (0.55-1.02); GLUCOSE,RANDOM 206 mg/dL (74-106); SGOT/AST 16 U/L (15-37); SGPT/ALT 34 U/L (12-78)
--- NOTE | 2016-11-27 09:38 | PN ---
Progress Note (short form) - Note Progress Note: CBC, BMP 11/27/16 05:47 11/27/16 05:47 Vital Signs Period Temp Pulse Resp BP Sys/Dougherty Pulse Ox Last 24 Hr 97.7 F-98.2 F 65-95 19-20 111-135/47-64 95-95 S1S2 irreg.irreg lungs cta abd soft NT no edema aaox3 IMP CHF-severely reduced LVSF on echo rapid Afib-now HR in 60s 70s-episodes of bradycardia down to 40 overnight, pauses no longer than 2.5sec HTN NIDDM diabetic retinopathy diabetic renal disease Plan stop cardizem and cont to monitor pt is adamant about going home today, will monitor until this pm and if HR remains controlled can dc with close oupt f/up outpt f/up for AICD, repeat holter recent stress test was this summer VNS upon dc
--- NOTE | 2016-11-27 11:11 | PN ---
Progress Note, Physician Chief Complaint: No chest dangelo; OOB in chair. History of Present Illness: The patient is a 66 year old black female who comes from home for evaluation of shortness of breath. The patient is normally on Cardizem and did not take her medication for the last couple of days. On arrival, she presents with rapid atrial fibrillation at a rate of 130-140. Her initial O2 saturation with room air was in the high 80%, on 2 L of O2 is 97%. She denies chest pain or any other complaints. - Current Medication List Current Medications: Active Medications Acetaminophen (Tylenol -) 650 mg PO Q4H PRN PRN Reason: FEVER OR PAIN Last Admin: 11/26/16 10:10 Dose: 650 mg Apixaban (Eliquis -) 2.5 mg PO BID [facility] Last Admin: 11/26/16 21:51 Dose: 2.5 mg Ascorbic Acid (Vitamin C -) 500 mg PO DAILY [facility] Last Admin: 11/26/16 10:09 Dose: 500 mg Aspirin (Asa -) 81 mg PO DAILY [facility] Last Admin: 11/26/16 10:10 Dose: 81 mg Calcium Carbonate (Os-Jimi 500mg -) 500 mg PO DAILY [facility] Last Admin: 11/26/16 10:11 Dose: 500 mg Carvedilol (Coreg -) 50 mg PO BID [facility] Last Admin: 11/26/16 21:51 Dose: 50 mg Chlorhexidine Gluconate (Hibiclens For Decolonization -) 1 applic TP HS [facility] Last Admin: 11/25/16 21:35 Dose: Not Given Colchicine (Colcrys -) 0.3 mg PO DAILY PRN PRN Reason: PAIN Last Admin: 11/25/16 11:47 Dose: 0.3 mg Cyanocobalamin (Vitamin B12 -) 250 mcg PO DAILY [facility] Last Admin: 11/26/16 10:12 Dose: 250 mcg Cyclopentolate HCl (Cyclogyl 1% Eye Drops -) 1 drop OD TID [facility] Last Admin: 11/26/16 14:35 Dose: 1 drop Ergocalciferol (Drisdol -) 50,000 unit PO Mo@1000 [facility] Ferrous Sulfate (Feosol -) 325 mg PO DAILY [facility] Last Admin: 11/26/16 10:10 Dose: 325 mg Furosemide (Lasix -) 40 mg PO Q2D@1000 [facility] Last Admin: 11/26/16 10:09 Dose: 40 mg Glimepiride (Amaryl -) 1 mg PO DAILY@0700 [facility] Last Admin: 11/26/16 06:19 Dose: 1 mg Insulin Aspart (Novolog Vial Sliding Scale -) 1 vial SQ TIDAC [facility] PRN Reason: Protocol Last Admin: 11/27/16 06:15 Dose: Not Given Mupirocin (Bactroban Ointment (For Decolonization) -) 1 applic NS BID [facility] Stop: 11/28/16 21:59 Last Admin: 11/26/16 10:16 Dose: Not Given Pantoprazole Sodium (Protonix -) 40 mg PO DAILY [facility] Last Admin: 11/26/16 10:12 Dose: 40 mg - Objective Vital Signs: Vital Signs Temperature 98 F 11/27/16 05:52 Pulse Rate 72 11/27/16 05:52 Respiratory Rate 20 11/27/16 05:52 Blood Pressure 135/60 11/27/16 05:52 O2 Sat by Pulse Oximetry (%) 95 11/26/16 21:00 Labs: CBC, BMP 11/27/16 05:47 11/27/16 05:47 INR, PTT INR 1.32 (0.82-1.09) H 11/23/16 03:00 Problem List - Problems (1) Acute on chronic systolic and diastolic heart failure, NYHA class 3 Assessment/Plan: Increase carvedilol to 50 mg bid (severe systolic LV dysfunction; obesity; AF; HTN). Off ditiazem due to slow HR; f/u on carvedilol alone. F/u records of recent stress MIBI. Pt says she wore a Life Vest two years ago, and was scheduled for ICD implantation, but cancelled it from fear. She was asked to reconsider it. Keep LDL cholesterol < 70 mg/dL (presently 80). Code(s): I50.43 - ACUTE ON CHRONIC COMBINED SYSTOLIC AND DIASTOLIC HRT FAIL (2) Afib Code(s): I48.91 - UNSPECIFIED ATRIAL FIBRILLATION (3) CKD (chronic kidney disease) stage 4, GFR 15-29 ml/min Code(s): N18.4 - CHRONIC KIDNEY DISEASE, STAGE 4 (SEVERE) (4) Non-insulin dependent type 2 diabetes mellitus Code(s): E11.9 - TYPE 2 DIABETES MELLITUS WITHOUT COMPLICATIONS (5) Shortness of breath Code(s): R06.02 - SHORTNESS OF BREATH (6) Obesity Code(s): E66.9 - OBESITY, UNSPECIFIED
[2016-11-27] MEDS: CYANOCOBALAMIN (VITAMIN B-12) 100 MCG TABLET PO SCH (11:22)
[2016-11-27] MEDS: ASPIRIN 81 MG CHEWABLE TABLETS PO SCH (11:23)
[2016-11-27] MEDS: FERROUS SO4 325 MG TABLET (FP) PO SCH (11:23)
[2016-11-27] MEDS: CALCIUM (OYSTER SHELL) 500 MG TABLET (FP) PO SCH (11:23)
[2016-11-27] MEDS: APIXABAN 2.5 MG TABLET PO SCH (11:24)
[2016-11-27] MEDS: CARVEDILOL 25 MG TABLET (FP) PO SCH (11:24)
[2016-11-27] MEDS: PANTOPRAZOLE 40 MG TABLET (FP) PO SCH (11:24)
[2016-11-27] MEDS: ACETAMINOPHEN 325 MG TABLET (FP) PO PRN (11:25)
[2016-11-27] MEDS: ASCORBIC ACID 500 MG TABLET (FP) PO SCH (11:25)
[2016-11-27] MEDS: COLCHICINE 0.6 MG TABLET (FP) PO PRN (11:30)
[2016-11-27] MEDS: MUPIROCIN 2% TOPICAL OINTMENT FOR DECOLONIZATION NS SCH (11:36)
[2016-11-27 15:46] VITALS: BP 147/52; TEMP 98.2
[2016-12-01] MEDS ORDERED: ERGOCALCIFEROL (VITAMIN D2) 50,000 UNIT CAPSULE (FP) PO SCH (10:00)
== END 2016-11-27 17:59 | disposition home health service (06) | DRG 291 ==
LOC: JER 01:36 → JERBED 09:29 → JICU 11:15 → J4W 11-24 20:39
PROVIDERS: ADMIT Internal Medicine; ATTEND Internal Medicine
PROC: B246ZZZ Ultrasonography of Right and Left Heart (ICD-10-PCS; principal; 2016-11-24)
DX: I13.0 Hypertensive heart and chronic kidney disease with heart failure and stage 1 through stage 4 chronic kidney disease, or unspecified chronic kidney disease (principal); I50.43 Acute on chronic combined systolic (congestive) and diastolic (congestive) heart failure; N18.4 Chronic kidney disease, stage 4 (severe); E11.22 Type 2 diabetes mellitus with diabetic chronic kidney disease; I48.91 Unspecified atrial fibrillation; Z79.01 Long term (current) use of anticoagulants; E87.5 Hyperkalemia; E66.9 Obesity, unspecified; Z68.39 Body mass index [BMI] 39.0-39.9, adult; I25.10 Atherosclerotic heart disease of native coronary artery without angina pectoris; Z95.4 Presence of other heart-valve replacement; Z86.73 Personal history of transient ischemic attack (TIA), and cerebral infarction without residual deficits; Z95.5 Presence of coronary angioplasty implant and graft; E78.00 Pure hypercholesterolemia, unspecified; Z87.891 Personal history of nicotine dependence; E11.65 Type 2 diabetes mellitus with hyperglycemia; K21.9 Gastro-esophageal reflux disease without esophagitis; J45.909 Unspecified asthma, uncomplicated; E11.319 Type 2 diabetes mellitus with unspecified diabetic retinopathy without macular edema; I25.5 Ischemic cardiomyopathy; Z79.84 Long term (current) use of oral hypoglycemic drugs
CPT/HCPCS: 36415; 71010-TC; 80053; 80061; 81003; 81015; 82553; 83605; 83721; 83735; 83880; 84443; 84484; 85025; 85610; 90688; 93005; 93010; 93306-TC; 94761; 97116-GP; 97161-GP; 99285-25; G0008

== ENCOUNTER 2020-01-31 14:38 | Emergency (ER) | payer OTHER ==
[2020-01-31 14:59] VITALS: TEMP 98.1; BMI 49.9
[2020-01-31 15:08] VITALS: BP 0/0; PULSE 0
== END 2020-01-31 17:05 | disposition expired ==
LOC: JER 14:38
DX: I46.9 Cardiac arrest, cause unspecified (principal)
CPT/HCPCS: 82962; 99291